=== PATIENT | male | born 1960 | race Caucasian/White ===

== ENCOUNTER 2018-02-25 07:20 | Emergency (ER) | payer OTHER ==
[2018-02-25 08:14] LABS: Absolute Lymphocytes (CBC) 1.3 K/uL (0.7-4.9); Absolute Monocytes 0.5 K/uL (0.1-1.3); Absolute Neutrophil 5.1 K/uL (1.8-8.0); Basophils % 0.8 % (0-1.3); Eosinophils % 2.5 % (0-4.4); Hematocrit 48.2 % (39.6-49.0); Lymphocytes % 17.7 % (15.3-44.8); MCH 31.1 pg (27.0-35.0); MCV 88.9 fL (80-100); MPV 10.6 fL (7.6-11.3); Monocytes % 7.2 % (3.3-12.3); RBC Red Blood Cell Count 5.42 M/uL (4.33-5.43)
[2018-02-25 08:31] LABS: ALT/SGPT 41 U/L (12-78); AST/SGOT 17 U/L (15-37); Albumin 3.7 g/dL (3.4-5.0); Alkaline Phosphatase 68 U/L (45-117); BUN Blood Urea Nitrogen 19 mg/dL (7-18); Bicarbonate 26 mmol/L (21-32); Bilirubin Direct 0.1 mg/dL (0-0.2); Bilirubin Total 0.6 mg/dL (0.2-1.0); Glucose Level 107 mg/dL (74-106); Magnesium 2.3 mg/dL (1.8-2.4); NT PRO-BNP 20 pg/mL (<125); Potassium 4.2 mmol/L (3.5-5.1); Protein, Total 6.9 g/dL (6.4-8.2); Sodium Level 137 mmol/L (136-145); Troponin (Emerg Dept Use Only) < 0.02 ng/mL (0.0-0.045)
--- NOTE | 2018-02-25 08:52 | RAD REPORT ---
EXAM DESCRIPTION: RAD - Chest Single View - 02/25/2018 8:13 am CLINICAL HISTORY: CHEST PAIN Chest pain. COMPARISON: CHEST PA AND LAT 2 VIEW dated 06/12/2014; CHEST PA AND LAT 2 VIEW dated 10/02/2013; CHEST S ASIA VIEW dated 04/25/2012; CHEST PA AND LAT 2 VIEW dated 09/03/2004 FINDINGS: Portable technique limits examination quality. The lungs are grossly clear. The heart is normal in size. No displaced fractures. IMPRESSION: No acute intrathoracic process suspected.
--- NOTE | 2018-02-25 09:50 | ER ---
Nurse's Notes [facility] Name: Dariel Duarte Age: 57 yrs Sex: Male : 1960 Arrival Date: 02/25/2018 Time: 07:23 Bed 16 Private MD: Fabián Fallon Diagnosis: Chest pain, unspecified Presentation: 02/25 07:30 Presenting complaint: Patient states: RIGHT SIDED CP RADIATING TO BACK. Transition of bp care: patient was not received from another setting of care. Onset of symptoms was February 20, 2018. Risk Assessment: Do you want to hurt yourself or someone else? Patient reports no desire to harm self or others. Initial Sepsis Screen: Does the patient meet any 2 criteria? No. Patient's initial sepsis screen is negative. Does the patient have a suspected source of infection? No. Patient's initial sepsis screen is negative. Care prior to arrival: None. 07:30 Method Of Arrival: Ambulatory bp 07:30 Acuity: FARZANA 3 bp Triage Assessment: 07:36 General: Appears in no apparent distress. comfortable, Behavior is calm, cooperative, bp appropriate for age. Pain: Complains of pain in anterior aspect of right upper chest Pain radiates to right subscapular area. Cardiovascular: Rhythm is sinus rhythm. Historical: - Allergies: 07:36 Codeine; bp - Home Meds: 07:36 aspirin 81 mg Oral TbEC 1 tab once daily [Active]; doxazosin 8 mg Oral tab 1 tab bp [Active]; escitalopram oxalate Oral [Active]; lisinopril-hydrochlorothiazide 20-12.5 mg Oral tab 1 tab once daily [Active]; Fish Oil Oral [Active]; Vitamin D3 2,000 unit Oral cap [Active]; Vitamin C Oral [Active]; - PMHx: 07:36 enlarged prostate; GERD; Hypertension; bp - Immunization history:: Adult Immunizations up to date. - Social history:: Smoking status: Patient/guardian denies using tobacco, the patient reports quitting approximately 8 years ago. - Ebola Screening: : Patient negative for fever greater than or equal to 101.5 degrees Fahrenheit, and additional compatible Ebola Virus Disease symptoms Patient denies exposure to infectious person Patient denies travel to an Ebola-affected area in the 21 days before illness onset No symptoms or risks identified at this time. Screenin:36 Abuse screen: Denies threats or abuse. Denies injuries from another. Nutritional bp screening: No deficits noted. Tuberculosis screening: No symptoms or risk factors identified. Fall Risk None identified. Assessment: 07:36 General: S/S FOR 5 DAYS. bp 07:36 Pain: Pain began 5 DAYS AGO. bp 08:58 Reassessment: ALL CURRENT ORDERS COMPLETED, RESULTS PENDING FOR DISPO. bp 09:58 Reassessment: PT D/C HOME AMBULATORY WITH FAMILY, DX WITH UNSPECIFIC CP. bp Vital Signs: 07:30 BP 127 / 84; Pulse 67; Resp 18; Temp 98; Pulse Ox 96% ; Weight 123.38 kg; Height 5 ft. bp 11 in. (180.34 cm); 08:58 BP 117 / 72; Pulse 72; Resp 14; Pulse Ox 95% ; bp 09:55 BP 126 / 92 RA; Pulse 60; Resp 16; Pulse Ox 96% ; bp 09:55 BP 132 / 89; Pulse 62 LA; bp 07:30 Body Mass Index 37.94 (123.38 kg, 180.34 cm) bp ED Course: 07:23 Patient arrived in ED. sb2 07:23 Fabián Fallon MD is Private Physician. sb2 07:26 Genaro Guzman NP is PHCP. pm1 07:26 Rosales Chaidez MD is Attending Physician. pm1 07:27 Fabián Wei, RN is Primary Nurse. bp 07:30 Arm band placed on right wrist. bp 07:33 Triage completed. bp 07:36 Patient has correct armband on for positive identification. Bed in low position. Call bp light in reach. Side rails up X2. Adult w/ patient. court recording monitor on. Pulse ox on. NIBP on. 07:36 Patient maintains SpO2 saturation greater than 95% on room air. bp 07:54 Inserted saline lock: 18 gauge in left hand, using aseptic technique. Blood collected. bp 08:11 X-ray completed. Portable x-ray completed in exam room. Patient tolerated procedure ag1 well. 08:11 XRAY Chest (1 view) In Process Unspecified. EDMS 08:13 EKG done, by restorative care technician. reviewed by Genaro Guzman NP. at1 09:50 Fabián Fallon MD is Referral Physician. pm1 09:56 No provider procedures requiring assistance completed. IV discontinued, intact, bp bleeding controlled, No redness/swelling at site. Pressure dressing applied. Administered Medications: No medications were administered Outcome: :50 Discharge ordered by MD. pm1 :57 Discharged to home ambulatory, with family. bp :57 Condition: stable :57 Discharge instructions given to patient, Instructed on discharge instructions, follow up and referral plans. Demonstrated understanding of instructions, follow-up care. 10:09 Patient left the ED. bp Signatures: Dispatcher [employer] EDMS Trudy Guido, power shear operator EKG Tat1 Macy Urbina ag1 Genaro Guzman, ELEVATED MOTORMAN ELEVATED MOTORMAN pm1 Fabián Wei, RN RN Marion Mike sb2
--- NOTE | 2018-02-25 09:50 | EDPHYS ---
Physician Documentation [facility] Name: Dariel Duarte Age: 57 yrs Sex: Male : 1960 Arrival Date: 02/25/2018 Time: 07:23 Bed 16 Private MD: Fabián Fallon ED Physician Rosales Chaidez HPI: 02/25 07:37 This 57 yrs old Male presents to ER via Ambulatory with complaints of Chest pm1 Pain. 07:37 The patient or guardian reports chest pain that is located primarily in the anterior pm1 chest wall, right. Onset: 4 day(s) ago. The pain radiates to right back. Associated signs and symptoms: Pertinent positives: diarrhea, Pertinent negatives: abdominal pain, cough, diaphoresis, dizziness, headache, nausea, palpitations, shortness of breath, vomiting. Duration: The patient or guardian reports a single episode. Modifying factors: The symptoms are alleviated by nothing. the symptoms are aggravated by nothing. Severity of pain: in the emergency department the pain is unchanged. The patient has been recently seen by a physician: the patient's primary care provider, with different complaint(s), the patient was seen for Rash, and apparently was diagnosed with folliculitis, was given a prescription for antibiotics, clindamycin. 07:37 1.5 pack per day smoker for 20 years. Quit 8 years ago. pm1 Historical: - Allergies: 07:36 Codeine; bp - Home Meds: 07:36 aspirin 81 mg Oral TbEC 1 tab once daily [Active]; doxazosin 8 mg Oral tab 1 tab bp [Active]; escitalopram oxalate Oral [Active]; lisinopril-hydrochlorothiazide 20-12.5 mg Oral tab 1 tab once daily [Active]; Fish Oil Oral [Active]; Vitamin D3 2,000 unit Oral cap [Active]; Vitamin C Oral [Active]; - PMHx: 07:36 enlarged prostate; GERD; Hypertension; bp - Immunization history:: Adult Immunizations up to date. - Social history:: Smoking status: Patient/guardian denies using tobacco, the patient reports quitting approximately 8 years ago. - Ebola Screening: : Patient negative for fever greater than or equal to 101.5 degrees Fahrenheit, and additional compatible Ebola Virus Disease symptoms Patient denies exposure to infectious person Patient denies travel to an Ebola-affected area in the 21 days before illness onset No symptoms or risks identified at this time. ROS: 07:37 Constitutional: Negative for fever, chills, and weight loss, Eyes: Negative for injury, pm1 pain, redness, and discharge, ENT: Negative for injury, pain, and discharge, Neck: Negative for injury, pain, and swelling, Respiratory: Negative for shortness of breath, cough, wheezing, and pleuritic chest pain. 07:37 Abdomen/GI: Negative for abdominal pain, nausea, vomiting, diarrhea, and constipation, Back: Negative for injury and pain, : Negative for injury, bleeding, discharge, and swelling, MS/Extremity: Negative for injury and deformity. 07:37 Neuro: Negative for headache, weakness, numbness, tingling, and seizure. 07:37 Cardiovascular: Positive for chest pain, Negative for edema, orthopnea, palpitations. 07:37 Skin: Positive for rash, of the scalp. Exam: 07:37 Constitutional: This is a well developed, well nourished patient who is awake, alert, pm1 and in no acute distress. Head/Face: Normocephalic, atraumatic. Eyes: Pupils equal round and reactive to light, extra-ocular motions intact. Lids and lashes normal. Conjunctiva and sclera are non-icteric and not injected. Cornea within normal limits. Periorbital areas with no swelling, redness, or edema. ENT: Nares patent. No nasal discharge, no septal abnormalities noted. Tympanic membranes are normal and external auditory canals are clear. Oropharynx with no redness, swelling, or masses, exudates, or evidence of obstruction, uvula midline. Mucous membranes moist. Neck: Trachea midline, no thyromegaly or masses palpated, and no cervical lymphadenopathy. Supple, full range of motion without nuchal rigidity, or vertebral point tenderness. No Meningismus. Chest/axilla: Normal chest wall appearance and motion. Nontender with no deformity. No lesions are appreciated. Cardiovascular: Regular rate and rhythm with a normal S1 and S2. No gallops, murmurs, or rubs. Normal PMI, no JVD. No pulse deficits. Respiratory: Lungs have equal breath sounds bilaterally, clear to auscultation and percussion. No rales, rhonchi or wheezes noted. No increased work of breathing, no retractions or nasal flaring. Abdomen/GI: Soft, non-tender, with normal bowel sounds. No distension or tympany. No guarding or rebound. No evidence of tenderness throughout. Back: No spinal tenderness. No costovertebral tenderness. Full range of motion. Skin: Warm, dry with normal turgor. Normal color with no rashes, no lesions, and no evidence of cellulitis. MS/ Extremity: Pulses equal, no cyanosis. Neurovascular intact. Full, normal range of motion. 07:37 Neuro: Orientation: is normal, Motor: is normal, moves all fours, Gait: is steady, at a normal pace, without difficulty. Vital Signs: 07:30 BP 127 / 84; Pulse 67; Resp 18; Temp 98; Pulse Ox 96% ; Weight 123.38 kg; Height 5 ft. bp 11 in. (180.34 cm); 08:58 BP 117 / 72; Pulse 72; Resp 14; Pulse Ox 95% ; bp 09:55 BP 126 / 92 RA; Pulse 60; Resp 16; Pulse Ox 96% ; bp 09:55 BP 132 / 89; Pulse 62 LA; bp 07:30 Body Mass Index 37.94 (123.38 kg, 180.34 cm) bp MDM: 07:26 Patient medically screened. pm1 09:45 ED course: Patient with constant atypical pain to the right side of chest for the past pm1 4 days. Negative troponin and ECG. LORRAINE score = 0. 09:49 Data reviewed: vital signs. Data interpreted: Pulse oximetry: on room air is 95 %. pm1 Interpretation: normal. Counseling: I had a detailed discussion with the patient and/or guardian regarding: the historical points, exam findings, and any diagnostic results supporting the discharge/admit diagnosis, lab results, radiology results, the need for outpatient follow up, to return to the emergency department if symptoms worsen or persist or if there are any questions or concerns that arise at home. 02/25 07:35 Order name: Basic Metabolic Panel; Complete Time: 08:31 pm1 02/25 07:35 Order name: CBC with Diff; Complete Time: 08:25 pm1 02/25 07:35 Order name: LFT's; Complete Time: 08:31 pm1 02/25 07:35 Order name: Magnesium; Complete Time: 08:31 pm1 02/25 07:35 Order name: NT PRO-BNP; Complete Time: 08:31 pm1 02/25 07:35 Order name: PT-INR; Complete Time: 08:22 pm1 02/25 07:35 Order name: Troponin (emerg Dept Use Only); Complete Time: 08:31 pm1 02/25 07:35 Order name: XRAY Chest (1 view); Complete Time: 08:55 pm1 02/25 07:35 Order name: EKG; Complete Time: 07:35 pm1 02/25 07:35 Order name: Cardiac monitoring; Complete Time: 07:44 pm1 02/25 07:35 Order name: EKG - Nurse/Tech; Complete Time: 07:54 pm1 02/25 07:35 Order name: IV Saline Lock; Complete Time: 07:54 pm1 02/25 07:35 Order name: Labs collected and sent; Complete Time: 07:54 pm1 02/25 07:35 Order name: O2 Per Protocol; Complete Time: 07:44 pm1 02/25 07:35 Order name: O2 Sat Monitoring; Complete Time: 07:44 pm1 Administered Medications: No medications were administered Disposition: 16:50 Co-signature as Attending Physician, Rosales Chaidez MD I agree with the assessment ma2 and plan of care. Disposition: 02/25/18 09:50 Discharged to Home. Impression: Chest pain, unspecified. - Condition is Stable. - Discharge Instructions: Nonspecific Chest Pain. - Medication Reconciliation Form, Thank You Letter, Work release form form. - Follow up: Emergency Department; When: As needed; Reason: Worsening of condition. Follow up: Fabián Fallon MD; When: 2 - 3 days; Reason: Recheck today's complaints, Continuance of care, Re-evaluation by your physician. - Problem is new. - Symptoms have improved. Signatures: Dispatcher [employer] EDMS Genaro Guzman NP CUSTOM FEED MILL OPERATOR pm1 Fabián Wei, MIKEY RN Rosales Davis MD MD ma2 Corrections: (The following items were deleted from the chart) 10:09 09:50 02/25/2018 09:50 Discharged to Home. Impression: Chest pain, unspecified. bp Condition is Stable. Forms are Medication Reconciliation Form, Thank You Letter, Antibiotic Education, Prescription Opioid Use. Follow up: Emergency Department; When: As needed; Reason: Worsening of condition. Follow up: Fabián Fallon; When: 2 - 3 days; Reason: Recheck today's complaints, Continuance of care, Re-evaluation by your physician. Problem is new. Symptoms have improved. pm1
[2018-02-25 10:20] VITALS: TEMP 98
[2018-02-25 10:22] VITALS: BP 132/89; O2SAT 96
--- NOTE | 2018-02-25 12:59 | EKG ---
Test Date: 2018-02-25 Test Time: 07:50:25 Detacher: JULISSA MEASUREMENT RESULTS: Intervals: Rate: 74 WV: 154 QRSD: 84 QT: 368 QTc: 408 [place]: P: 45 WV: 154 QRS: 65 T: 44 INTERPRETIVE STATEMENTS: Normal sinus rhythm Normal ECG Compared to ECG 05/31/2017 08:42:07 No significant changes Electronically Signed On 02-25-18 12:59:05 PERSONAL LINES ACCOUNT MANAGER by Chace Montoya
== END 2018-02-25 10:09 | disposition home or self-care (01) ==
LOC: ER 07:20
DX: R07.9 Chest pain, unspecified (principal); I10 Essential (primary) hypertension; K21.9 Gastro-esophageal reflux disease without esophagitis; N40.0 Benign prostatic hyperplasia without lower urinary tract symptoms; Z79.82 Long term (current) use of aspirin; Z79.899 Other long term (current) drug therapy; Z87.891 Personal history of nicotine dependence
CPT/HCPCS: 36415; 71045; 80048; 80076; 83735; 83880; 84484; 85025; 85610; 93005; 99285

== ENCOUNTER 2019-03-12 23:08 | Emergency (ER) | payer OTHER ==
[2019-03-12 23:40] LABS: Absolute Lymphocytes (CBC) 1.6 K/uL (0.7-4.9); Basophils % 0.9 % (0-1.3); Hematocrit 47.1 % (39.6-49.0); Lymphocytes % 22.6 % (15.3-44.8); MPV 10.1 fL (7.6-11.3); RBC Red Blood Cell Count 5.18 M/uL (4.33-5.43)
[2019-03-12] MEDS ORDERED: NA CHLORIDE 0.9% 1,000 ML ONE (23:41)
[2019-03-12 23:45] LABS: Protime INR 0.88
[2019-03-13 00:02] LABS: ALT/SGPT 40 U/L (12-78); AST/SGOT 15 U/L (15-37); Albumin 3.7 g/dL (3.4-5.0); Alkaline Phosphatase 65 U/L (45-117); BUN Blood Urea Nitrogen 14 mg/dL (7-18); Bicarbonate 29 mmol/L (21-32); Bilirubin Direct < 0.1 mg/dL (0-0.2); Bilirubin Total 0.4 mg/dL (0.2-1.0); Glucose Level 116 mg/dL (74-106); Magnesium 2.2 mg/dL (1.8-2.4); NT PRO-BNP 59 pg/mL (<125); Potassium 4.2 mmol/L (3.5-5.1); Protein, Total 6.5 g/dL (6.4-8.2); Sodium Level 141 mmol/L (136-145); Troponin (Emerg Dept Use Only) < 0.02 ng/mL (0.0-0.045)
[2019-03-13 00:42] LABS: Urine White Blood Cell Casts OK
[2019-03-13 00:43] LABS: Blood Morphology Comment NOT SEEN (NOT SEEN); Platelet Estimate ADEQ
--- NOTE | 2019-03-13 02:06 | EDPHYS ---
Physician Documentation [facility] Name: Dariel Duarte Age: 58 yrs Sex: Male : 1960 Arrival Date: 03/12/2019 Time: 23:10 Bed 19 Private MD: ED Physician Dany Coleman HPI: 03/12 23:40 This 58 yrs old Male presents to ER via Ambulatory with complaints of Chest snw Pain. 23:40 Onset: The symptoms/episode began/occurred suddenly, 3 week(s) ago, and became snw persistent. Associated signs and symptoms: Pertinent positives: nausea. The patient has not experienced similar symptoms in the past. It is unknown whether or not the patient has recently seen a physician, sees Dr. Fallon. Historical: - Allergies: 23:34 Codeine; wh - Home Meds: 23:34 aspirin 81 mg Oral TbEC 1 tab once daily [Active]; doxazosin 8 mg Oral tab 1 tab wh [Active]; Vitamin C Oral [Active]; escitalopram oxalate Oral [Active]; Fish Oil Oral [Active]; Omeprazole Oral [Active]; Lisinopril Oral [Active]; Vitamin D Oral [Active]; Potassium Chloride Oral [Active]; - PMHx: 23:34 enlarged prostate; GERD; Hypertension; wh - Immunization history:: Adult Immunizations not up to date. - Social history:: Smoking status: Patient/guardian denies using tobacco. - Ebola Screening: : Patient negative for fever greater than or equal to 101.5 degrees Fahrenheit, and additional compatible Ebola Virus Disease symptoms Patient denies exposure to infectious person. ROS: 23:39 Constitutional: Negative for fever, chills, and weight loss, Eyes: Negative for injury, snw pain, redness, and discharge, ENT: Negative for injury, pain, and discharge, Neck: Negative for injury, pain, and swelling. 23:39 Respiratory: Negative for shortness of breath, cough, wheezing, and pleuritic chest pain. 23:39 Back: Negative for injury and pain, : Negative for injury, bleeding, discharge, and swelling, MS/Extremity: Negative for injury and deformity, Skin: Negative for injury, rash, and discoloration, Neuro: Negative for headache, weakness, numbness, tingling, and seizure. 23:39 Cardiovascular: Positive for chest pain, with movement. 23:39 Abdomen/GI: Positive for nausea, mild, occasional. Exam: 23:38 Constitutional: This is a well developed, well nourished patient who is awake, alert, snw and in no acute distress. Head/Face: Normocephalic, atraumatic. Eyes: Pupils equal round and reactive to light, extra-ocular motions intact. Lids and lashes normal. Conjunctiva and sclera are non-icteric and not injected. Cornea within normal limits. Periorbital areas with no swelling, redness, or edema. ENT: Nares patent. No nasal discharge, no septal abnormalities noted. Tympanic membranes are normal and external auditory canals are clear. Oropharynx with no redness, swelling, or masses, exudates, or evidence of obstruction, uvula midline. Mucous membranes moist. Neck: Trachea midline, no thyromegaly or masses palpated, and no cervical lymphadenopathy. Supple, full range of motion without nuchal rigidity, or vertebral point tenderness. No Meningismus. Chest/axilla: Normal chest wall appearance and motion. Nontender with no deformity. No lesions are appreciated. Cardiovascular: Regular rate and rhythm with a normal S1 and S2. No gallops, murmurs, or rubs. Normal PMI, no JVD. No pulse deficits. Respiratory: Lungs have equal breath sounds bilaterally, clear to auscultation and percussion. No rales, rhonchi or wheezes noted. No increased work of breathing, no retractions or nasal flaring. 23:38 Back: No spinal tenderness. No costovertebral tenderness. Full range of motion. Skin: Warm, dry with normal turgor. Normal color with no rashes, no lesions, and no evidence of cellulitis. MS/ Extremity: Pulses equal, no cyanosis. Neurovascular intact. Full, normal range of motion. Neuro: Awake and alert, GCS 15, oriented to person, place, time, and situation. Cranial nerves II-XII grossly intact. Motor strength 5/5 in all extremities. Sensory grossly intact. Cerebellar exam normal. Normal gait. Psych: Awake, alert, with orientation to person, place and time. Behavior, mood, and affect are within normal limits. 23:38 Abdomen/GI: Inspection: abdomen appears normal, Bowel sounds: normal, Palpation: mild abdominal tenderness, in the epigastric area. Vital Signs: 23:26 BP 123 / 98; Pulse 71; Resp 18; Temp 97.8; Pulse Ox 98% ; Weight 124.74 kg; Height 5 wh ft. 11 in. (180.34 cm); 03/13 00:30 BP 120 / 106; Pulse 67; Resp 18; Pulse Ox 95% ; wh 01:52 BP 148 / 93; Pulse 73; Resp 18; Pulse Ox 95% on R/A; wh 03/12 23:26 Body Mass Index 38.35 (124.74 kg, 180.34 cm) MDM: 03/12 23:17 Patient medically screened. snw 03/13 00:51 ED course: to [facility]. snw 02:24 Data reviewed: vital signs, nurses notes. Data interpreted: Pulse oximetry: on room air snw is 95 %. Interpretation: normal. Counseling: I had a detailed discussion with the patient and/or guardian regarding: the historical points, exam findings, and any diagnostic results supporting the discharge/admit diagnosis, the presence of at least one elevated blood pressure reading (>120/80) during this emergency department visit, lab results, radiology results, the need for outpatient follow up, to return to the emergency department if symptoms worsen or persist or if there are any questions or concerns that arise at home. Response to treatment: the patient's symptoms have mildly improved after treatment. Special discussion: Based on the history and exam findings, there is no indication for further emergent testing or inpatient evaluation. I discussed with the patient/guardian the need to see the retirement sales consultant for further evaluation of the symptoms. I discussed with the patient/guardian the need to see the primary care provider for further evaluation of the symptoms. 03/12 23:23 Order name: Basic Metabolic Panel; Complete Time: 00:07 snw 03/12 23:23 Order name: CBC with Diff; Complete Time: 00:50 snw 03/12 23:23 Order name: LFT's; Complete Time: 00:07 snw 03/12 23:23 Order name: Magnesium; Complete Time: 00:07 snw 03/12 23:23 Order name: NT PRO-BNP; Complete Time: 00:07 snw 03/12 23:23 Order name: PT-INR; Complete Time: 23:51 snw 03/12 23:23 Order name: Troponin (emerg Dept Use Only); Complete Time: 00:07 snw 03/12 23:23 Order name: XRAY Chest (1 view) snw 03/12 23:23 Order name: EKG; Complete Time: 23:25 snw 03/12 23:23 Order name: Cardiac monitoring; Complete Time: 23:24 snw 03/12 23:23 Order name: CT Abd/Pelvis - PO and IV Contrast snw 03/13 00:50 Order name: CBC Smear Scan EDMS 03/12 23:23 Order name: EKG - Nurse/Tech; Complete Time: 23:25 snw 03/12 23:23 Order name: IV Saline Lock; Complete Time: 23:35 snw 03/12 23:23 Order name: Labs collected and sent; Complete Time: 23:35 snw 03/12 23:23 Order name: O2 Per Protocol; Complete Time: 23:24 snw 03/12 23:23 Order name: O2 Sat Monitoring; Complete Time: 23:24 snw Administered Medications: 03/12 23:44 Drug: NS 0.9% 1000 ml Route: IV; Rate: 125 ml/hr; Site: right antecubital; 03/13 02:35 Follow up: Response: No adverse reaction; IV Status: IV converted to saline lock 02:11 Drug: ProTONIX 40 mg Route: IVP; Site: right antecubital; 02:35 Follow up: Response: No adverse reaction Disposition: 10:22 Co-signature as Attending Physician, Dany Coleman MD I agree with the assessment and kdr plan of care. Disposition: 03/13/19 02:05 Discharged to Home. Impression: Chest pain, unspecified, Hepatomegaly, not elsewhere classified, Adrenal adenoma, unspecified. - Condition is Stable. - Discharge Instructions: Nonspecific Chest Pain, Food Choices for Gastroesophageal Reflux Disease, Adult, Hepatomegaly, Fat and Cholesterol Restricted Diet, [id number]. - Prescriptions for orphenadrine citrate 100 mg Oral Tablet Sustained Release - take 1 tablet by ORAL route 2 times per day As needed; 20 tablet. - Work release form, Medication Reconciliation Form, Thank You Letter, Antibiotic Education, Prescription Opioid Use form. - Follow up: Emergency Department; When: As needed; Reason: Worsening of condition. Follow up: Private Physician; When: 2 - 3 days; Reason: Recheck today's complaints, Continuance of care, Re-evaluation by your physician. Signatures: Dispatcher [employer] Dany Rojas MD MD kdr Therrien, Shelly, BANDAR PEREZP-Anny Goyal Jaymona lundberg Corrections: (The following items were deleted from the chart) 02:36 02:05 03/13/2019 02:05 Discharged to Home. Impression: Chest pain, unspecified; wh Hepatomegaly, not elsewhere classified; Adrenal adenoma, unspecified. Condition is Stable. Forms are Medication Reconciliation Form, Thank You Letter, Antibiotic Education, Prescription Opioid Use. Follow up: Emergency Department; When: As needed; Reason: Worsening of condition. Follow up: Private Physician; When: 2 - 3 days; Reason: Recheck today's complaints, Continuance of care, Re-evaluation by your physician. snw
--- NOTE | 2019-03-13 02:06 | ER ---
Nurse's Notes [facility] Name: Dariel Duarte Age: 58 yrs Sex: Male : 1960 Arrival Date: 03/12/2019 Time: 23:10 Bed 19 Private MD: Diagnosis: Chest pain, unspecified;Hepatomegaly, not elsewhere classified;Adrenal adenoma, unspecified Presentation: 03/12 23:24 Presenting complaint: Patient states: Epigastric pain that started 3 weeks ago wh exacerbated when he coughs and moves. Transition of care: patient was not received from another setting of care. Onset of symptoms was March 12, 2019. Risk Assessment: Do you want to hurt yourself or someone else? Patient reports no desire to harm self or others. Initial Sepsis Screen: Does the patient meet any 2 criteria? No. Patient's initial sepsis screen is negative. Does the patient have a suspected source of infection? No. Patient's initial sepsis screen is negative. Care prior to arrival: None. 23:24 Method Of Arrival: Ambulatory 23:24 Acuity: FARZANA 3 Historical: - Allergies: 23:34 Codeine; wh - Home Meds: 23:34 aspirin 81 mg Oral TbEC 1 tab once daily [Active]; doxazosin 8 mg Oral tab 1 tab wh [Active]; Vitamin C Oral [Active]; escitalopram oxalate Oral [Active]; Fish Oil Oral [Active]; Omeprazole Oral [Active]; Lisinopril Oral [Active]; Vitamin D Oral [Active]; Potassium Chloride Oral [Active]; - PMHx: 23:34 enlarged prostate; GERD; Hypertension; wh - Immunization history:: Adult Immunizations not up to date. - Social history:: Smoking status: Patient/guardian denies using tobacco. - Ebola Screening: : Patient negative for fever greater than or equal to 101.5 degrees Fahrenheit, and additional compatible Ebola Virus Disease symptoms Patient denies exposure to infectious person. Screenin:26 Abuse screen: Denies threats or abuse. Denies injuries from another. Nutritional screening: No deficits noted. Tuberculosis screening: No symptoms or risk factors identified. Fall Risk None identified. Assessment: 23:27 General: Appears in no apparent distress. Behavior is calm, cooperative, appropriate wh for age. Pain: Complains of pain in epigastric area Pain does not radiate. Pain currently is 8 out of 10 on a pain scale. Pain began 3 weeks ago Is intermittent. Neuro: Level of Consciousness is awake, alert, obeys commands, Oriented to person, place, time, situation, Appropriate for age. Cardiovascular: Heart tones S1 S2 Rhythm is regular. Respiratory: Airway is patent Respiratory effort is even, unlabored, Respiratory pattern is regular, symmetrical. GI: Abdomen is flat, non-distended. : No signs and/or symptoms were reported regarding the genitourinary system. EENT: No signs and/or symptoms were reported regarding the EENT system. Derm: Skin is intact, is healthy with good turgor, Skin is pink, warm \T\ dry. normal. Musculoskeletal: Circulation, motion, and sensation intact. 03/13 00:30 Reassessment: Patient appears in no apparent distress at this time. No changes from previously documented assessment. Patient and/or family updated on plan of care and expected duration. Pain level reassessed. Patient is alert, oriented x 3, equal unlabored respirations, skin warm/dry/pink. 01:51 Reassessment: Patient appears in no apparent distress at this time. No changes from previously documented assessment. Patient and/or family updated on plan of care and expected duration. Pain level reassessed. Patient is alert, oriented x 3, equal unlabored respirations, skin warm/dry/pink. 02:14 Reassessment: Provider at bedside explaining POC. Vital Signs: 03/12 23:26 BP 123 / 98; Pulse 71; Resp 18; Temp 97.8; Pulse Ox 98% ; Weight 124.74 kg; Height 5 ft. 11 in. (180.34 cm); 03/13 00:30 BP 120 / 106; Pulse 67; Resp 18; Pulse Ox 95% ; 01:52 BP 148 / 93; Pulse 73; Resp 18; Pulse Ox 95% on R/A; 03/12 23:26 Body Mass Index 38.35 (124.74 kg, 180.34 cm) ED Course: 03/12 23:10 Patient arrived in ED. ds1 23:12 Laquita Goyal is Primary Nurse. wh 23:16 Chandrika Bennett FNP-C is PHCP. snw 23:16 Dany Coleman MD is Attending Physician. snw 23:26 Triage completed. 23:29 Arm band placed on right wrist. 23:29 Patient has correct armband on for positive identification. Bed in low position. Call light in reach. Side rails up X 1. court recording monitor on. Pulse ox on. NIBP on. 23:29 Patient maintains SpO2 saturation greater than 95% on room air. 03/13 00:04 XRAY Chest (1 view) In Process Unspecified. EDMS 00:15 Inserted saline lock: 20 gauge in right antecubital area, using aseptic technique. Blood collected. 01:15 CT Abd/Pelvis - PO and IV Contrast In Process Unspecified. EDMS 02:34 No provider procedures requiring assistance completed. IV discontinued, intact, bleeding controlled, No redness/swelling at site. Administered Medications: 03/12 23:44 Drug: NS 0.9% 1000 ml Route: IV; Rate: 125 ml/hr; Site: right antecubital; 12 02:35 Follow up: Response: No adverse reaction; IV Status: IV converted to saline lock 02:11 Drug: ProTONIX 40 mg Route: IVP; Site: right antecubital; 02:35 Follow up: Response: No adverse reaction Outcome: 02:05 Discharge ordered by MD. snw 02:34 Discharged to home ambulatory, with family. 02:34 Condition: stable 02:34 Discharge instructions given to patient, family, Instructed on discharge instructions, follow up and referral plans. POC GERD and Non Specific Chest Pain Demonstrated understanding of instructions, follow-up care, medications, POC Prescriptions given X 1. 02:36 Patient left the ED. Signatures: Dispatcher [employer] EDRI Chandrika Bennett, EDUCATION AND TRAINING COORDINATOR-C EDUCATION AND TRAINING COORDINATOR-Maria Eugenia Stanton dsLaquita Davis
[2019-03-13] MEDS ORDERED: PANTOPRAZOLE 40 MG INJ ONE (02:09)
[2019-03-13 02:46] VITALS: TEMP 97.8
[2019-03-13 02:47] VITALS: O2SAT 95
[2019-03-13 02:48] VITALS: BP 148/93
--- NOTE | 2019-03-13 08:29 | RAD REPORT ---
EXAM DESCRIPTION: RAD - Chest Single View - 03/12/2019 11:58 pm CLINICAL HISTORY: Chest pain COMPARISON: February 2018 TECHNIQUE: AP portable chest image was obtained 2350 hours . FINDINGS: No focal lung parenchymal process. Interstitial pattern and heart size match the compariso n. Heart and vasculature are normal. No measurable pleural effusion and no pneumothorax. No acute bon y abnormality seen. No acute aortic findings suspected. IMPRESSION: No acute cardiopulmonary process.
--- NOTE | 2019-03-13 10:05 | EKG ---
Test Date: 2019-03-12 Test Time: 23:16:26 Manager Simulation: SHANIA MEASUREMENT RESULTS: Intervals: Rate: 72 [place]: 148 QRSD: 84 QT: 402 QTc: 440 [place]: P: 69 [place]: 148 QRS: 76 T: 43 INTERPRETIVE STATEMENTS: Normal sinus rhythm Normal ECG Compared to ECG 02/25/2018 07:50:25 No significant changes Electronically Signed On 03-13-19 10:03:32 [employer] by Chace Montoya
--- NOTE | 2019-03-14 11:39 | RAD REPORT ---
EXAM DESCRIPTION: CT - Abdomen Pelvis W Contrast - 03/13/2019 2:38 am CLINICAL HISTORY: 58-year-old male with abdominal pain, epigastric pain that started three weeks ago and is exacerbated when he coughs TECHNIQUE: Axial CT imaging of the abdomen and pelvis was performed following the administration of intravenous contrast.. Sagittal and coronal reconstructed images were then performed. The CT stud y is performed according to ALARA (as low as reasonably achievable) or ALARA/IMAGE GENTLY, with autom atic adjustment of mA and/or kV according to patient size. Performed on: 03/13/2019 at 1:04 AM. COMPARISON: Prior CT abdomen and pelvis performed on 05/31/2017. The report from this prior study was not available for review FINDINGS: Lung bases: The lung bases are clear. There is minimal bibasilar atelectasis and/or fibros is. There is prominent subpleural fat in the dependent lungs. Liver: The liver is enlarged and measures 21 cm in craniocaudal dimension. There is a stable small cy st in the posterior right hepatic lobe measuring approximately 3.0 x 1.8 cm in cross-sectional diamet er and there are a couple of additional subcentimeter right hepatic lobe cysts. There appears to be a n area of focal fatty sparing in the lateral segment of the left hepatic lobe. There is decreased att enuation of the liver commonly due to fatty infiltration. Spleen: The spleen is normal is size, configuration and attenuation. Gallbladder and bile duct: The gallbladder is well distended and unremarkable. There is no biliary ductal dilatation. Pancreas: The pancreas is grossly normal in size and configuration. Adrenal Glands: There is a stable low density mass lesion arising from the left adrenal gland measuri ng approximately 1.7 x 1.3 cm in cross-sectional diameter. This likely represents an adrenal adenoma. The right adrenal gland is normal in size and configuration. Kidneys: The kidneys are normal in size and configuration. There is no evidence of hydronephrosis. Th ere is no evidence of nephrolithiasis. No definite solid or cystic renal mass lesions are identified. There is a circumaortic left renal vein. Stomach: The stomach is grossly normal. There is no definite hiatal hernia. Bowel: The bowel gas pattern is non specific and non obstructive. Appendix: The appendix is normal. Free air: There is no evidence of free air. Free fluid: There is no evidence of free fluid. Vasculature: The aorta is normal in caliber and contour. The inferior vena cava is grossly unremarkab le. Lymphadenopathy: No pathologic lymphadenopathy is identified. Bladder: The bladder is well distended and smooth in contour. Reproductive: The prostate gland is grossly within normal limits. Bones: No acute osseous abnormalities are identified. Soft tissues: There is a small fat-containing left inguinal hernia. IMPRESSION: 1. No evidence of acute intra-abdominal or intrapelvic pathology. 2. Hepatomegaly. There are a few small hepatic cysts which are grossly stable. 3. Suspect focal fatty sparing within the lateral segment of the left hepatic lobe. 4. Stable small low density left adrenal mass lesion most consistent with an adrenal adenoma. 5. Small fat-containing left inguinal hernia. Electronically signed by: Negar Perez DO 03/13/2019 1:40 AM [facility] Due to temporary technical issues with the PACS/Fluency reporting system, reports are being signed by the in house radiologist as a courtesy to ensure prompt reporting. The interpreting radiologist is f ully responsible for the content of the report.
== END 2019-03-13 02:36 | disposition home or self-care (01) ==
LOC: ER 23:08
DX: R16.0 Hepatomegaly, not elsewhere classified (principal); D35.00 Benign neoplasm of unspecified adrenal gland; I10 Essential (primary) hypertension; K21.9 Gastro-esophageal reflux disease without esophagitis; N40.0 Benign prostatic hyperplasia without lower urinary tract symptoms; Z79.82 Long term (current) use of aspirin; Z88.5 Allergy status to narcotic agent
CPT/HCPCS: 96361; 93005; 85025; 80048; 36415; 83735; 85610; 80076; 84484; 83880; 74177; 71045; 96374; 99285; Q9967; C9113; J7030

== ENCOUNTER 2019-08-08 05:33 | Emergency (ER) | payer BC, OTHER ==
--- OUTSIDE RECORDS SUMMARY | 2019-08-08 05:35 | XMS REPORT ---
:1960 Author Organization [facility] t Address [address] [place] [address] [address] [place] [address] Care Team Providers Name Role Phone Unavailable Unavailable Unavailable Problems This patient has no known problems. Allergies, Adverse Reactions, Alerts This patient has no known allergies or adverse reactions. Medications This patient has no known medications.
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
[2019-08-08 06:23] LABS: Absolute Lymphocytes (CBC) 1.1 K/uL (0.7-4.9); Basophils % 0.6 % (0-1.3); Hematocrit 47.5 % (39.6-49.0); Lymphocytes % 16.6 % (15.3-44.8); MPV 10.3 fL (7.6-11.3); RBC Red Blood Cell Count 5.23 M/uL (4.33-5.43)
[2019-08-08 06:39] LABS: Albumin 3.7 g/dL (3.4-5.0); Bilirubin Direct 0.1 mg/dL (0-0.2); Bilirubin Total 0.4 mg/dL (0.2-1.0); Potassium 4.3 mmol/L (3.5-5.1); Protein, Total 6.9 g/dL (6.4-8.2)
--- NOTE | 2019-08-08 08:12 | RAD REPORT ---
EXAM DESCRIPTION: CT - Abdomen Pelvis W Contrast - 08/08/2019 7:09 am CLINICAL HISTORY: ABD PAIN, left lower quadrant pain COMPARISON: Abdomen Pelvis W Contrast dated 03/13/2019; Abdomen Pelvis W Contrast dated 01/13/2016 TECHNIQUE: Biphasic, helical CT imaging of the abdomen and pelvis was performed following 100 ml non -ionic IV contrast. No oral contrast administered. All CT scans are performed using dose optimization technique as appropriate and may include automated exposure control or mA/KV adjustment according to patient size. FINDINGS: No suspicious findings in the lung bases. Normal size liver shows a fatty infiltration pattern. Increased attenuation in the posterior margin o f the left lobe cine area of spared parenchyma. This matches prior imaging. Approximately 3 centimete r cyst posterior right lobe shows no change in characteristics. Spleen and pancreas show no suspiciou s findings. Gallbladder and biliary tree are also without suspicious finding. Symmetric renal function is seen with no hydronephrosis or suspicious renal mass. No pyelonephritis o r acute parenchymal process. Contracted urinary bladder shows no suspicious finding. No prostate or s eminal vesicle acute finding. No adrenal abnormalities. No stomach or small bowel acute finding seen. The appendix is normal. Mild to moderate stool volume i n a normal size colon. Sigmoid is redundant. There is little or no diverticulosis. No active colon pr ocess. No free air, free fluid or inflammatory stranding. No mass or bulky lymphadenopathy. Patient does fernando ve a small fat only left inguinal hernia. No congestion or edema of the herniated fat. The hernia is unchanged the 2016 study. No acute bony findings. Patient has significant degenerative disc disease at L2-3 with disc bulge and endplate spurring. Foraminal encroachment is present but not critical. Slight wedging of the T11 bod y is noted. The disc and bone findings match the 2019 study. No suspicious vascular finding. No abdom inal wall hematoma or mass. No suspicious soft tissue finding. IMPRESSION: As detailed above, CT abdomen and pelvis imaging shows no acute process. Above detailed findings are stable from the March 2019 study.
--- NOTE | 2019-08-08 08:24 | EDPHYS ---
Physician Documentation [facility] Name: Dariel Duarte Age: 59 yrs Sex: Male : 1960 Arrival Date: 08/08/2019 Time: 05:35 Bed 8 Private MD: Chris Hunt HPI: 08/07 06:05 This 59 yrs old Male presents to ER via Ambulatory with complaints of Side jr8 Pain-L. 06:05 The patient presents with abdominal pain in the left lower quadrant. Onset: The jr8 symptoms/episode began/occurred gradually, 2 month(s) ago. The symptoms do not radiate. Associated signs and symptoms: none. The symptoms are described as dull. Modifying factors: The symptoms are alleviated by nothing, the symptoms are aggravated by nothing. Severity of pain: At its worst the pain was mild in the emergency department the pain is unchanged. The patient has not experienced similar symptoms in the past. The patient has been recently seen by a physician:. Patient stated that he has had pain to lateral left abdomen for about 2 months. Stated that it has been unrelieved since then. Went to [facility] and had urinalysis completed. Stated that it was normal. Historical: - Allergies: 06:01 Codeine; jd3 - Home Meds: 06:01 escitalopram oxalate 10 mg oral tab [Active]; aspirin 81 mg Oral TbEC 1 tab once daily jd3 [Active]; doxazosin 8 mg Oral tab 1 tab [Active]; Fish Oil Oral [Active]; lisinopril Oral [Active]; omeprazole 40 mg oral cpDR [Active]; Potassium Chloride Oral [Active]; Vitamin D Oral [Active]; dexmethylphenidate 30 mg oral BP50 [Active]; doxazosin 8 mg oral tab [Active]; rosuvastatin 5 mg oral tab [Active]; clonidine HCl 0.1 mg Oral tab 1 tab once daily [Active]; divalproex 250 mg oral Tb24 [Active]; doxycycline hyclate 100 mg Oral cap [Active]; Vitamin B-6 Oral [Active]; - PMHx: 06:01 enlarged prostate; GERD; Hypertension; jd3 - PSHx: 06:01 prostate; right elbow; jd3 - Immunization history:: Adult Immunizations up to date. - Social history:: Smoking status: Patient/guardian denies using tobacco, but has a distant history of tobacco abuse. ROS: 06:05 Eyes: Negative for injury, pain, redness, and discharge, ENT: Negative for injury, jr8 pain, and discharge, Neck: Negative for injury, pain, and swelling, Cardiovascular: Negative for chest pain, palpitations, and edema, Respiratory: Negative for shortness of breath, cough, wheezing, and pleuritic chest pain, Back: Negative for injury and pain, MS/Extremity: Negative for injury and deformity, Skin: Negative for injury, rash, and discoloration, Neuro: Negative for headache, weakness, numbness, tingling, and seizure. 06:05 Abdomen/GI: Positive for abdominal pain, diarrhea, Negative for nausea and vomiting, abdominal cramps, abdominal distension, anorexia, dysphagia, hematemesis, black/tarry stool, rectal pain, rectal bleeding, bowel incontinence, flatulence. Exam: 06:05 Eyes: Pupils equal round and reactive to light, extra-ocular motions intact. Lids and jr8 lashes normal. Conjunctiva and sclera are non-icteric and not injected. Cornea within normal limits. Periorbital areas with no swelling, redness, or edema. ENT: Nares patent. No nasal discharge, no septal abnormalities noted. Tympanic membranes are normal and external auditory canals are clear. Oropharynx with no redness, swelling, or masses, exudates, or evidence of obstruction, uvula midline. Mucous membranes moist. Neck: Trachea midline, no thyromegaly or masses palpated, and no cervical lymphadenopathy. Supple, full range of motion without nuchal rigidity, or vertebral point tenderness. No Meningismus. Cardiovascular: Regular rate and rhythm with a normal S1 and S2. No gallops, murmurs, or rubs. Normal PMI, no JVD. No pulse deficits. Respiratory: Lungs have equal breath sounds bilaterally, clear to auscultation and percussion. No rales, rhonchi or wheezes noted. No increased work of breathing, no retractions or nasal flaring. Back: No spinal tenderness. No costovertebral tenderness. Full range of motion. Skin: Warm, dry with normal turgor. Normal color with no rashes, no lesions, and no evidence of cellulitis. MS/ Extremity: Pulses equal, no cyanosis. Neurovascular intact. Full, normal range of motion. Neuro: Awake and alert, GCS 15, oriented to person, place, time, and situation. Cranial nerves II-XII grossly intact. Motor strength 5/5 in all extremities. Sensory grossly intact. Cerebellar exam normal. Normal gait. 06:05 Abdomen/GI: Inspection: obese Bowel sounds: active, all quadrants, Palpation: soft, in all quadrants, mild abdominal tenderness, in the anterior aspect of left lateral abdomen and left lower quadrant, mass, is not appreciated, rebound tenderness, is not appreciated, voluntary guarding, is not appreciated, involuntary guarding, is not appreciated, no appreciated organomegaly, Indicators: McBurney's point is not tender, Lange's sign is negative, Rovsing's sign is negative, Liver: tenderness, is not appreciated. Vital Signs: 06:01 BP 131 / 90; Pulse 81; Resp 17 S; Temp 97.6(TE); Pulse Ox 95% on R/A; Weight 125.19 kg jd3 (R); Height 5 ft. 11 in. (180.34 cm) (R); Pain 5/10; 07:39 BP 127 / 84; Pulse 77; Resp 16; Pulse Ox 99% ; sv 08:29 BP 122 / 82; Pulse 78; Resp 16; Pulse Ox 99% ; sv 06:01 Body Mass Index 38.49 (125.19 kg, 180.34 cm) jd3 MDM: 05:47 Patient medically screened. campbell 06:08 Differential diagnosis: bowel obstruction, non-specific abd pain, Pyelonephritis, jr8 Ureterolithiasis, urinary tract infection, colitis, diverticulitis, intraabdominal mass, musculoskeletal, hernia. 08:12 Data reviewed: vital signs, nurses notes, lab test result(s), radiologic studies, CT jr8 scan. Data interpreted: Pulse oximetry: on room air is 99 %. Interpretation: normal. Counseling: I had a detailed discussion with the patient and/or guardian regarding: the historical points, exam findings, and any diagnostic results supporting the discharge/admit diagnosis, lab results, radiology results, the need for outpatient follow up, a family practitioner, to return to the emergency department if symptoms worsen or persist or if there are any questions or concerns that arise at home. 08/07 05:54 Order name: Basic Metabolic Panel; Complete Time: 06:41 jr8 08/07 05:54 Order name: CBC with Diff; Complete Time: 06:33 8 08/07 05:54 Order name: Creatinine for Radiology; Complete Time: 06:39 08/07 05:54 Order name: Hepatic Function; Complete Time: 06:41 08/07 05:54 Order name: Lipase; Complete Time: 06:41 08/07 06:39 Order name: CT Abd/Pelvis - IV Contrast Only; Complete Time: 08:18 08/07 05:54 Order name: IV Saline Lock; Complete Time: 06:04 08/07 05:54 Order name: Labs collected and sent; Complete Time: 06:19 Administered Medications: No medications were administered Disposition: 11:05 Co-signature as Attending Physician, Chris Phipps MD I agree with the assessment and campbell plan of care. Disposition: 08/08/19 08:23 Discharged to Home. Impression: Generalized abdominal pain. - Condition is Stable. - Discharge Instructions: Abdominal Pain, Adult. - Work release form, Medication Reconciliation Form, Thank You Letter, Antibiotic Education, Prescription Opioid Use form. - Follow up: Private Physician; When: 5 - 6 days; Reason: Recheck today's complaints, Continuance of care, Re-evaluation by your physician. - Problem is new. - Symptoms have improved. Signatures: Dispatcher [employer] Kristel Rivera RN RN sv Anderson, Corey, MD MD cha Roszak, Josh, PA PA jr8 Kosta Cruz RN RN jd3 Corrections: (The following items were deleted from the chart) 08:30 08:23 08/08/2019 08:23 Discharged to Home. Impression: Generalized abdominal pain. sv Condition is Stable. Forms are Medication Reconciliation Form, Thank You Letter, Antibiotic Education, Prescription Opioid Use. Follow up: Private Physician; When: 5 - 6 days; Reason: Recheck today's complaints, Continuance of care, Re-evaluation by your physician. Problem is new. Symptoms have improved. jr8
--- NOTE | 2019-08-08 08:24 | ER ---
Nurse's Notes [facility] Name: Dariel Duarte Age: 59 yrs Sex: Male : 1960 Arrival Date: 08/08/2019 Time: 05:35 Bed 8 Private MD: Diagnosis: Generalized abdominal pain Presentation: 08/07 05:54 Chief complaint: Patient states: "I have been having this stomach pain on my lower left jd3 side for about 2 months now. I went to [facility] and was told it was muscle strain, but they didn't do any test on me. it mainly hurts worse when eating too much or when I have a bowel movement.". Coronavirus screen: Proceed with normal triage. Ebola Screen: Patient negative for fever greater than or equal to 101.5 degrees Fahrenheit, and additional compatible Ebola Virus Disease symptoms. Initial Sepsis Screen: Does the patient meet any 2 criteria? No. Patient's initial sepsis screen is negative. Does the patient have a suspected source of infection? No. Patient's initial sepsis screen is negative. Risk Assessment: Do you want to hurt yourself or someone else? Patient reports no desire to harm self or others. Onset of symptoms was June 06, 2019. 05:54 Method Of Arrival: Ambulatory jd3 05:54 Acuity: FARZANA 3 jd3 Historical: - Allergies: 06:01 Codeine; jd3 - Home Meds: 06:01 escitalopram oxalate 10 mg oral tab [Active]; aspirin 81 mg Oral TbEC 1 tab once daily jd3 [Active]; doxazosin 8 mg Oral tab 1 tab [Active]; Fish Oil Oral [Active]; lisinopril Oral [Active]; omeprazole 40 mg oral cpDR [Active]; Potassium Chloride Oral [Active]; Vitamin D Oral [Active]; dexmethylphenidate 30 mg oral BP50 [Active]; doxazosin 8 mg oral tab [Active]; rosuvastatin 5 mg oral tab [Active]; clonidine HCl 0.1 mg Oral tab 1 tab once daily [Active]; divalproex 250 mg oral Tb24 [Active]; doxycycline hyclate 100 mg Oral cap [Active]; Vitamin B-6 Oral [Active]; - PMHx: 06:01 enlarged prostate; GERD; Hypertension; jd3 - PSHx: 06:01 prostate; right elbow; jd3 - Immunization history:: Adult Immunizations up to date. - Social history:: Smoking status: Patient/guardian denies using tobacco, but has a distant history of tobacco abuse. Screenin:03 Abuse screen: Denies threats or abuse. Nutritional screening: No deficits noted. jd3 Tuberculosis screening: No symptoms or risk factors identified. Fall Risk Ambulatory Aid- None/Bed Rest/Nurse Assist (0 pts). Gait- Normal/Bed Rest/Wheelchair (0 pts) Mental Status- Oriented to own ability (0 pts). Total Hurley Fall Scale indicates No Risk (0-24 pts). Assessment: 06:02 General: Appears uncomfortable, Behavior is calm, cooperative, appropriate for age. jd3 Pain: Complains of pain in left lower quadrant Quality of pain is described as dull. Neuro: Level of Consciousness is awake, alert, obeys commands, Oriented to person, place, time, situation. Cardiovascular: Denies chest pain, Capillary refill < 3 seconds Patient's skin is warm and dry. Respiratory: Airway is patent Respiratory effort is even, unlabored, Respiratory pattern is regular, symmetrical, Denies cough, shortness of breath. GI: Abdomen is round non-distended, Bowel sounds present X 4 quads. Abd is soft and non tender X 4 quads. Reports lower abdominal pain, diarrhea, Patient currently denies constipation, nausea, vomiting. : No signs and/or symptoms were reported regarding the genitourinary system. EENT: No signs and/or symptoms were reported regarding the EENT system. Derm: Skin is intact, Skin is dry, Skin is normal, Skin temperature is warm. Musculoskeletal: Circulation, motion, and sensation intact. Range of motion: intact in all extremities. 06:46 Reassessment: No changes from previously documented assessment. Patient and/or family jd3 updated on plan of care and expected duration. Pain level reassessed. Patient is alert, oriented x 3, equal unlabored respirations, skin warm/dry/pink. awaiting CT scan. 07:38 Reassessment: Patient appears in no apparent distress at this time. Patient and/or sv family updated on plan of care and expected duration. Pain level reassessed. Patient is alert, oriented x 3, equal unlabored respirations, skin warm/dry/pink. 08:29 Reassessment: Patient appears in no apparent distress at this time. No changes from sv previously documented assessment. Patient and/or family updated on plan of care and expected duration. Pain level reassessed. Patient is alert, oriented x 3, equal unlabored respirations, skin warm/dry/pink. Vital Signs: 06:01 BP 131 / 90; Pulse 81; Resp 17 S; Temp 97.6(TE); Pulse Ox 95% on R/A; Weight 125.19 kg jd3 (R); Height 5 ft. 11 in. (180.34 cm) (R); Pain 5/10; 07:39 BP 127 / 84; Pulse 77; Resp 16; Pulse Ox 99% ; sv 08:29 BP 122 / 82; Pulse 78; Resp 16; Pulse Ox 99% ; sv 06:01 Body Mass Index 38.49 (125.19 kg, 180.34 cm) j ED Course: 05:35 Patient arrived in ED. ds1 05:47 Chris Phipps MD is Attending Physician. campbell 05:53 Kosta Cruz, RN is Primary Nurse. jd3 05:54 Ganesh Mendosa PA is PHCP. jr8 05:56 Triage completed. jd3 06:02 Arm band placed on. jd3 06:03 Patient has correct armband on for positive identification. Bed in low position. Call j light in reach. Side rails up X 1. Pulse ox on. NIBP on. 06:20 Initial lab(s) drawn, by ky, sent to lab. Inserted saline lock: 20 gauge in left jd3 antecubital area, using aseptic technique. Blood collected. 07:09 CT Abd/Pelvis - IV Contrast Only In Process Unspecified. EDMS 07:18 Awaiting radiology results. sv 07:18 Primary Nurse role handed off by Kosta Cruz, RN sv 07:18 Kristel Franco, MIKEY is Primary Nurse. sv 08:29 No provider procedures requiring assistance completed. IV discontinued, intact, sv bleeding controlled, No redness/swelling at site. Pressure dressing applied. Administered Medications: No medications were administered Outcome: 08:23 Discharge ordered by . jr8 08:30 Discharged to home ambulatory. sv 08:30 Condition: stable 08:30 Discharge instructions given to patient, Instructed on discharge instructions, follow up and referral plans. Demonstrated understanding of instructions, follow-up care. 08:30 Patient left the ED. sv Signatures: Dispatcher [employer] Kristel Rivera RN RN sv Chris Phipps MD MD cha Sanford, Demi ds1 Ganesh Mendosa PA PA jr8 Kosta Cruz RN RN jd3 Corrections: (The following items were deleted from the chart) 07:42 07:39 Resp 16bpm; Pulse Ox 99%; sv sv
[2019-08-08 08:38] VITALS: TEMP 97.6
[2019-08-08 08:40] VITALS: O2SAT 99
[2019-08-08 08:41] VITALS: BP 122/82
== END 2019-08-08 08:30 | disposition home or self-care (01) ==
LOC: ER 05:33
DX: R10.84 Generalized abdominal pain (principal); I10 Essential (primary) hypertension; K21.9 Gastro-esophageal reflux disease without esophagitis; Z79.82 Long term (current) use of aspirin; Z88.5 Allergy status to narcotic agent
CPT/HCPCS: 85025; 80048; 36415; 80076; 83690; 74177; 99284; Q9967

== ENCOUNTER 2020-07-03 09:11 | Emergency (ER) | payer BC ==
--- OUTSIDE RECORDS SUMMARY | 2020-07-03 09:14 | XMS REPORT | Continuity of Care Document ---
:1960 Author Organization [facility] t Address [address] [place] [address] [address] [place] [address] Care Team Providers Name Role Phone Yumiko Varghese DO Attending Clinician Problems This patient has no known problems. Allergies, Adverse Reactions, Alerts This patient has no known allergies or adverse reactions. Medications This patient has no known medications. Procedures This patient has no known procedures. Encounters Start End Encounter Admission Attending Care Care Encounter Source Date/Time Date/Time Type Type Clinicians Facility Department ID 2019-08-02 2019-08-02 Emergency BELLE Varghese [id number] 12:12:50 13:32:00 Kathy Zapien [id number] [place] [id number] [place] [id number] Results This patient has no known results.
[2020-07-03] MEDS ORDERED: KETOROLAC 30 MG/ML INJ ONE (10:12)
[2020-07-03] MEDS ORDERED: CYCLOBENZAPRINE 10 MG TAB ONE (10:12)
--- NOTE | 2020-07-03 11:13 | EDPHYS ---
Physician Documentation [facility] Name: Dariel Duarte Age: 60 yrs Sex: Male : 1960 Arrival Date: 07/03/2020 Time: 09:13 Bed 23 Private MD: ED Physician Dany Coleman HPI: 07/03 10:52 This 60 yrs old Male presents to ER via Ambulatory with complaints of Back kb Pain. 10:52 The patient presents with pain that is acute, and tenderness. The symptoms are located kb in the left mid back. Onset: The symptoms/episode began/occurred 6 week(s) ago. The pain does not radiate. Associated signs and symptoms: The patient has no apparent associated signs or symptoms. The problem was sustained during a fall, while walking. Modifying factors: The patient symptoms are alleviated by nothing, the patient symptoms are aggravated by movement. Severity of symptoms: At their worst the symptoms were moderate, in the emergency department the symptoms are unchanged. The patient has not experienced similar symptoms in the past. The patient has not recently seen a physician. Pt reports pain to left mid back that started after a fall 6 weeks ago. Reports pain is worse with movement, stretching. Area is tender to palpation. . Historical: - Allergies: 09:21 Codeine; ss - PMHx: 09:21 enlarged prostate; GERD; Hypertension; ss - PSHx: 09:21 prostate; right elbow; ss - Immunization history:: Adult Immunizations unknown. - Social history:: Smoking status: Patient denies any tobacco usage or history of. ROS: 10:51 Constitutional: Negative for fever, chills, and weight loss, Cardiovascular: Negative kb for chest pain, palpitations, and edema, Respiratory: Negative for shortness of breath, cough, wheezing, and pleuritic chest pain, Abdomen/GI: Negative for abdominal pain, nausea, vomiting, diarrhea, and constipation, MS/Extremity: Negative for injury and deformity, Skin: Negative for injury, rash, and discoloration, Neuro: Negative for headache, weakness, numbness, tingling, and seizure. 10:51 Back: Positive for pain at rest, pain with movement. Exam: 10:50 Constitutional: This is a well developed, well nourished patient who is awake, alert, kb and in no acute distress. Head/Face: Normocephalic, atraumatic. Cardiovascular: Regular rate and rhythm with a normal S1 and S2. No gallops, murmurs, or rubs. No pulse deficits. Skin: Warm, dry with normal turgor. Normal color. MS/ Extremity: Pulses equal, no cyanosis. Neurovascular intact. Full, normal range of motion. Neuro: Awake and alert, GCS 15, oriented to person, place, time, and situation. Moves all extremities. Normal gait. 10:50 Respiratory: the patient does not display signs of respiratory distress, Respirations: normal, Breath sounds: are clear throughout. 10:50 Back: pain, that is moderate, of the left mid back, ROM is normal, normal spinal alignment noted, CVA tenderness, is absent, vertebral tenderness, is not appreciated. Vital Signs: 09:19 Pulse 77; Resp 16; Temp 98.4(TE); Pulse Ox 98% on R/A; Weight 127.91 kg; Height 5 ft. ss 11 in. (180.34 cm); Pain 7/10; 09:22 BP 130 / 85; ss 09:19 Body Mass Index 39.33 (127.91 kg, 180.34 cm) ss MDM: 09:37 Patient medically screened. kb 10:45 Data reviewed: vital signs, nurses notes. Data interpreted: Pulse oximetry: on room air kb is 98 %. Interpretation: normal. Counseling: I had a detailed discussion with the patient and/or guardian regarding: the historical points, exam findings, and any diagnostic results supporting the discharge/admit diagnosis, radiology results, the need for outpatient follow up, a family practitioner, to return to the emergency department if symptoms worsen or persist or if there are any questions or concerns that arise at home. 07/03 09:44 Order name: Chest Single View XRAY kb 07/03 10:51 Order name: Urine Dipstick-Ancillary (obtain specimen); Complete Time: 11:19 kb Administered Medications: 10:00 Drug: TORadol 60 mg Route: IM; Site: right gluteus; ca1 11:23 Follow up: Response: No adverse reaction ss 10:01 Drug: Flexeril (cyclobenzaprine) 10 mg Route: PO; ca1 11:23 Follow up: Response: No adverse reaction; Marked relief of symptoms ss Disposition: 14:10 Co-signature as Attending Physician, Dany Coleman MD I agree with the assessment and kdr plan of care. Disposition: 07/03/20 11:12 Discharged to Home. Impression: Muscle spasm of back. - Condition is Stable. - Discharge Instructions: Back Pain, Adult, [id number], Muscle Cramps and Spasms, [id number]. - Prescriptions for Cyclobenzaprine 10 mg Oral Tablet - take 1 tablet by ORAL route every 8 hours As needed; 21 tablet. Diclofenac Sodium 75 mg Oral Tablet, Delayed Release (E.C.) - take 1 tablet by ORAL route 2 times per day As needed; 30 tablet. - Medication Reconciliation Form, Thank You Letter, Antibiotic Education, Prescription Opioid Use, Work release form form. - Follow up: Emergency Department; When: As needed; Reason: Worsening of condition. Follow up: Private Physician; When: 2 - 3 days; Reason: Recheck today's complaints, Continuance of care, Re-evaluation by your physician. Signatures: Dispatcher [employer] EDMS Palmira Downs, VP ANCILLARY-C VP ANCILLARY-Dany Esquivel MD MD [facility] Leandra Taylor RN RN ss Cindy Gil RN RN ca1 Corrections: (The following items were deleted from the chart) 11: 11:12 07/03/2020 11:12 Discharged to Home. Impression: Muscle spasm of back. Condition ss is Stable. Discharge Instructions: Back Pain, Adult, Fsso-ez-Yezs, Muscle Cramps and Spasms, Dhwj-cw-Pale. Prescriptions for Cyclobenzaprine 10 mg Oral Tablet - take 1 tablet by ORAL route every 8 hours As needed; 21 tablet, Diclofenac Sodium 75 mg Oral Tablet, Delayed Release (E.C.) - take 1 tablet by ORAL route 2 times per day As needed; 30 tablet. and Forms are Medication Reconciliation Form, Thank You Letter, Antibiotic Education, Prescription Opioid Use. Follow up: Emergency Department; When: As needed; Reason: Worsening of condition. Follow up: Private Physician; When: 2 - 3 days; Reason: Recheck today's complaints, Continuance of care, Re-evaluation by your physician. kb
--- NOTE | 2020-07-03 11:13 | ER ---
Nurse's Notes [facility] Name: Dariel Duarte Age: 60 yrs Sex: Male : 1960 Arrival Date: 07/03/2020 Time: 09:13 Bed 23 Private MD: Diagnosis: Muscle spasm of back Presentation: 07/03 09:19 Chief complaint: Patient states: L mid back pain, "feels like a Leonard Horse" x 6 ss weeks. Has gotten worse. Pt reports he fell about 6 weeks ago onto his L shoulder. Coronavirus screen: Client denies travel out of the [place] in the last 14 days. Ebola Screen: Patient denies exposure to infectious person. Patient denies travel to an Ebola-affected area in the 21 days before illness onset. Initial Sepsis Screen: Does the patient meet any 2 criteria? No. Patient's initial sepsis screen is negative. Does the patient have a suspected source of infection? No. Patient's initial sepsis screen is negative. Risk Assessment: Do you want to hurt yourself or someone else? Patient reports no desire to harm self or others. Onset of symptoms was May 2020. 09:19 Method Of Arrival: Ambulatory ss 09:19 Acuity: FARZANA 4 ss Historical: - Allergies: 09:21 Codeine; ss - PMHx: 09:21 enlarged prostate; GERD; Hypertension; ss - PSHx: 09:21 prostate; right elbow; ss - Immunization history:: Adult Immunizations unknown. - Social history:: Smoking status: Patient denies any tobacco usage or history of. Screenin:30 Abuse screen: Denies threats or abuse. Denies injuries from another. Nutritional ss screening: No deficits noted. Tuberculosis screening: Never had TB. Fall Risk None identified. Assessment: 09:19 General: Appears in no apparent distress. comfortable, Behavior is calm, cooperative, ss Denies fever, feeling ill, fatigue, chills. Pain: Complains of pain in left subscapular area and left mid back Pain currently is 7 out of 10 on a pain scale. Quality of pain is described as "Feels like a Leonard horse" Pain began 6 weeks ago Is intermittent. Neuro: Level of Consciousness is awake, alert, obeys commands, Oriented to person, place, time, situation, Reacher are equal bilaterally. Cardiovascular: Capillary refill < 3 seconds is brisk in bilateral fingers Patient's skin is warm and dry. Respiratory: Airway is patent Trachea midline Respiratory effort is even, unlabored, Respiratory pattern is regular, symmetrical, Breath sounds are clear bilaterally. Denies cough, shortness of breath pain with respiration, pain with cough, pain with movement. EENT: Oral mucosa is moist. Derm: Skin is pink, warm \\T\\ dry. normal. Vital Signs: 09:19 Pulse 77; Resp 16; Temp 98.4(TE); Pulse Ox 98% on R/A; Weight 127.91 kg; Height 5 ft. ss 11 in. (180.34 cm); Pain 7/10; 09:22 BP 130 / 85; ss 09:19 Body Mass Index 39.33 (127.91 kg, 180.34 cm) ss ED Course: 09:13 Patient arrived in ED. as 09:21 Triage completed. ss 09:21 Arm band placed on right wrist. ss 09:30 Patient has correct armband on for positive identification. Bed in low position. Call ss light in reach. 09:36 Palmira Downs FNP-C is [facility]. kb 09:36 Dany Coleman MD is Attending Physician. kb 10:03 Chest Single View XRAY In Process Unspecified. EDMS 10:22 Leandra Taylor RN is Primary Nurse. ss 11:22 No provider procedures requiring assistance completed. Patient did not have IV access ss during this emergency room visit. Administered Medications: 10:00 Drug: TORadol 60 mg Route: IM; Site: right gluteus; ca1 11:23 Follow up: Response: No adverse reaction ss 10:01 Drug: Flexeril (cyclobenzaprine) 10 mg Route: PO; ca1 11:23 Follow up: Response: No adverse reaction; Marked relief of symptoms ss Outcome: 11:12 Discharge ordered by . kb 11:22 Discharged to home ambulatory. ss 11:22 Condition: improved 11:22 Discharge instructions given to patient, Instructed on discharge instructions, follow up and referral plans. medication usage, Demonstrated understanding of instructions, follow-up care, medications, Prescriptions given X 2. 11:24 Patient left the ED. ss Signatures: Dispatcher [employer] EDMS Palmira Downs FNP-C FNP-Delmi Mojica as Leandra Taylor, RN RN ss AcCindy garay, RN RN ca1
[2020-07-03 11:28] VITALS: TEMP 98.4; O2SAT 98
[2020-07-03 11:29] VITALS: BP 130/85
--- NOTE | 2020-07-08 13:52 | RAD REPORT ---
EXAM DESCRIPTION: RAD Chest Single View 07/03/2020 10:03 am CLINICAL HISTORY: Rib pain COMPARISON: 2019 FINDINGS: The lungs appear clear of acute infiltrate. The heart is normal size. No gross rib fracture seen IMPRESSION: No acute abnormalities displayed
== END 2020-07-03 11:24 | disposition home or self-care (01) ==
LOC: ER 09:11
DX: M62.830 Muscle spasm of back (principal); K21.9 Gastro-esophageal reflux disease without esophagitis; I10 Essential (primary) hypertension
CPT/HCPCS: 71045; 96372; 99283

== ENCOUNTER 2020-07-21 01:52 | Emergency (ER) | payer BC ==
--- OUTSIDE RECORDS SUMMARY | 2020-07-21 01:55 | XMS REPORT | Continuity of Care Document ---
:[address] [facility] t Address [address] [place] [address] Dr. A[address]. [address] [place] [address] Care Team Providers Name Role Phone Yumiko [...] 2019-08-02 2019-08-02 Emergency BELLE Varghese [id number] 12:12:50 13:32:00 Kathy Zapien [id number] [place] [id number] [place] [phone] Results This patient has no known results.
[2020-07-21] MEDS ORDERED: FLUORESCEIN SODIUM 1 MG/WRAP ONE (02:56)
[2020-07-21] MEDS ORDERED: TETRACAINE HCL 0.5% 4ML OPTH ONE (02:56)
--- NOTE | 2020-07-21 03:12 | ER ---
Nurse's Notes [facility] Name: Dariel Duarte Age: 60 yrs Sex: Male : 1960 Arrival Date: 07/21/2020 Time: 01:56 Bed 5 Private MD: Diagnosis: Corneal Abrasion, Right Presentation: 07/21 02:11 Chief complaint: Patient states: he woke up at approx 0100 and vision in his right eye bb is blurry he states that it has happened before but usually clears up by now. Coronavirus screen: At this time, the client does not indicate any symptoms associated with coronavirus-19. Ebola Screen: No symptoms or risks identified at this time. Initial Sepsis Screen: Does the patient meet any 2 criteria? No. Patient's initial sepsis screen is negative. Does the patient have a suspected source of infection? No. Patient's initial sepsis screen is negative. Risk Assessment: Do you want to hurt yourself or someone else? Patient reports no desire to harm self or others. Onset of symptoms was July 21, 2020. 02:11 Method Of Arrival: Ambulatory bb 02:11 Acuity: FARZANA 4 bb Historical: - Allergies: 02:20 Codeine; bb - Home Meds: 02:20 escitalopram oxalate 10 mg Oral tab [Active]; omeprazole 40 mg Oral cpDR [Active]; bb lisinopril 20 mg oral tab 1 tab [Active]; doxazosin 8 mg Oral tab 1 tab [Active]; rosuvastatin 5 mg Oral tab [Active]; Fish Oil 1200 mg Oral [Active]; aspirin 81 mg Oral TbEC 1 tab once daily [Active]; Vitamin D Oral [Active]; Potassium Chloride 275 mg Oral [Active]; Vitamin C Oral [Active]; Xiidra [Active]; - PMHx: 02:20 enlarged prostate; GERD; Hypertension; High Cholesterol; Dry Eye; bb - PSHx: 02:20 prostate; right elbow; bb - Immunization history:: Adult Immunizations up to date. - Social history:: Smoking status: unknown. Screenin:51 Abuse screen: Denies threats or abuse. Denies injuries from another. Nutritional lp1 screening: No deficits noted. Tuberculosis screening: No symptoms or risk factors identified. Fall Risk None identified. Assessment: 03:04 General: Appears in no apparent distress. Behavior is calm, cooperative. Pain: lp1 Complains of pain in right eye. Neuro: Level of Consciousness is awake, alert, obeys commands, Oriented to person, place, time, situation, Gait is steady, Reports blurred vision in right eye. Cardiovascular: Patient's skin is warm and dry. Respiratory: Reports. GI: No signs and/or symptoms were reported involving the gastrointestinal system. : No signs and/or symptoms were reported regarding the genitourinary system. EENT: No signs and/or symptoms were reported regarding the EENT system. Derm: Skin is pink, warm \T\ dry. Musculoskeletal: No deficits noted. Vital Signs: 02:11 BP 139 / 99; Pulse 65; Resp 18 S; Temp 97.4(TE); Pulse Ox 95% on R/A; Weight 131.54 kg bb (R); Height 5 ft. 11 in. (180.34 cm) (R); Pain 0/10; 02:11 Body Mass Index 40.45 (131.54 kg, 180.34 cm) bb Visual Acuity: 02:20 Left Eye Visual acuity 20/15, Pupil size 4 mm, ; Right Eye Visual acuity 20/30, Pupil bb size 4 mm, ; Both Eyes Visual acuity 20/15; Without Lenses; ED Course: 01:56 Patient arrived in ED. bp1 02:12 Lazaro Covarrubias MD is Attending Physician. 7 02:13 Ngoc Waters, MIKEY is Primary Nurse. lp1 02:13 Triage completed. bb 02:20 Arm band placed on Patient placed in an exam room, on a stretcher, on pulse oximetry. bb Family accompanied patient. 02:50 Assist provider with eye exam of right eye. using fluorescein stain, Performed by lp1 Lazaro Covarrubias MD Patient tolerated well. 02:51 Patient has correct armband on for positive identification. lp1 03:10 Carlee Dunn MD is Referral Physician. 7 03:21 Patient did not have IV access during this emergency room visit. Administered Medications: 02:49 Drug: Tetracaine Drops 0.5 % 1 drops Route: Ophthalmic; Site: right eye; lp1 Outcome: 03:11 Discharge ordered by . 7 03:21 Discharged to home ambulatory, with family. 03:21 Condition: stable 03:21 Discharge instructions given to patient, family, Instructed on discharge instructions, follow up and referral plans. medication usage, POC Demonstrated understanding of instructions, follow-up care, medications, POC Prescriptions given X 1. 03:21 Patient left the ED. Signatures: Kamini Frazier RN RN Ngoc Waters RN RN lp1 Laquita Goyal RN RN Key Spencer Maurice, MD MD mh7
--- NOTE | 2020-07-21 03:12 | EDPHYS ---
Physician Documentation [facility] Name: Dariel Duarte Age: 60 yrs Sex: Male : 1960 Arrival Date: 07/21/2020 Time: 01:56 Bed 5 Private MD: ED Physician Lazaro Covarrubias HPI: 07/21 02:57 This 60 yrs old Male presents to ER via Ambulatory with complaints of Vision mh7 Problem, Blurred Vision, Right Eye. 02:57 The patient is experiencing blurred vision, The patient sustained Unknown. to the right mh7 eye, caused by an unknown mechanism. Onset: The symptoms/episode began/occurred today. Duration: the symptoms are continuous. Aggravated by rubbing, Alleviated by nothing. Associated signs and symptoms: Pertinent negatives: chills, dizziness, ear ache, fever, headache, runny nose. Patient wears glasses. Severity of symptoms: At their worst the symptoms were mild this morning, in the emergency department the symptoms have improved moderately. The patient has experienced similar episodes in the past, multiple times. 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 Last worked 2 days ago. States he woke up with blurry vision of right eye which has happened regularly in the past. He has been rubbing right eye. Denies pain, nausea, vomiting, or other complaints.. Historical: - Allergies: 02:20 Codeine; bb - Home Meds: 02:20 escitalopram oxalate 10 mg Oral tab [Active]; omeprazole 40 mg Oral cpDR [Active]; bb lisinopril 20 mg oral tab 1 tab [Active]; doxazosin 8 mg Oral tab 1 tab [Active]; rosuvastatin 5 mg Oral tab [Active]; Fish Oil 1200 mg Oral [Active]; aspirin 81 mg Oral TbEC 1 tab once daily [Active]; Vitamin D Oral [Active]; Potassium Chloride 275 mg Oral [Active]; Vitamin C Oral [Active]; Xiidra [Active]; - PMHx: 02:20 enlarged prostate; GERD; Hypertension; High Cholesterol; Dry Eye; bb - PSHx: 02:20 prostate; right elbow; bb - Immunization history:: Adult Immunizations up to date. - Social history:: Smoking status: unknown. ROS: 03:06 Constitutional: Negative for fever, chills, and weight loss, ENT: Negative for injury, mh7 pain, and discharge, Neck: Negative for injury, pain, and swelling, Cardiovascular: Negative for chest pain, palpitations, and edema, Respiratory: Negative for shortness of breath, cough, wheezing, and pleuritic chest pain, Abdomen/GI: Negative for abdominal pain, nausea, vomiting, diarrhea, and constipation, Back: Negative for injury and pain, : Negative for injury, bleeding, discharge, and swelling, MS/Extremity: Negative for injury and deformity, Skin: Negative for injury, rash, and discoloration, Neuro: Negative for headache, weakness, numbness, tingling, and seizure, Psych: Negative for depression, anxiety, suicide ideation, homicidal ideation, and hallucinations, Allergy/Immunology: Negative for hives, rash, and allergies, Endocrine: Negative for neck swelling, polydipsia, polyuria, polyphagia, and marked weight changes, Hematologic/Lymphatic: Negative for swollen nodes, abnormal bleeding, and unusual bruising. Exam: 03:06 Visual Acuity: I have reviewed the nursing documentation. [facility] 03:06 Constitutional: This is a well developed, well nourished patient who is awake, alert, and in no acute distress. Head/Face: Normocephalic, atraumatic. 03:06 Neck: Trachea midline, no thyromegaly or masses palpated, and no cervical lymphadenopathy. Supple, full range of motion without nuchal rigidity, or vertebral point tenderness. No Meningismus. Chest/axilla: Normal chest wall appearance and motion. Nontender with no deformity. No lesions are appreciated. Cardiovascular: Regular rate and rhythm with a normal S1 and S2. No gallops, murmurs, or rubs. Normal PMI, no JVD. No pulse deficits. Respiratory: Lungs have equal breath sounds bilaterally, clear to auscultation and percussion. No rales, rhonchi or wheezes noted. No increased work of breathing, no retractions or nasal flaring. Abdomen/GI: Soft, non-tender, with normal bowel sounds. No distension or tympany. No guarding or rebound. No evidence of tenderness throughout. Back: No spinal tenderness. No costovertebral tenderness. Full range of motion. Skin: Warm, dry with normal turgor. Normal color with no rashes, no lesions, and no evidence of cellulitis. MS/ Extremity: Pulses equal, no cyanosis. Neurovascular intact. Full, normal range of motion. Neuro: Awake and alert, GCS 15, oriented to person, place, time, and situation. Cranial nerves II-XII grossly intact. Motor strength 5/5 in all extremities. Sensory grossly intact. Cerebellar exam normal. Normal gait. Psych: Awake, alert, with orientation to person, place and time. Behavior, mood, and affect are within normal limits. 03:06 Eyes: Periorbital structures: appear normal, Pupils: equal, round, and reactive to light and accomodation, Extraocular movements: intact throughout, Conjunctiva: normal, Corneas: abrasion, that is moderate sized, on the right, at 6 o'clock, 9 O'clock, foreign body, is not appreciated, a fluorescein strip employed to appreciate the findings, Sclera: no appreciated abnormality, Lids and lashes: appear normal, bilaterally, funduscopic exam reveals no obvious abnormalities, Visual rothman: are intact, Nystagmus: is not appreciated, Examination of the other eye reveals no obvious gross abnormality, Intraocular pressure: right eye = 18mmHg, left eye = 18mmHg. Vital Signs: 02:11 BP 139 / 99; Pulse 65; Resp 18 S; Temp 97.4(TE); Pulse Ox 95% on R/A; Weight 131.54 kg bb (R); Height 5 ft. 11 in. (180.34 cm) (R); Pain 0/10; 02:11 Body Mass Index 40.45 (131.54 kg, 180.34 cm) bb Visual Acuity: 02:20 Left Eye Visual acuity 20/15, Pupil size 4 mm, ; Right Eye Visual acuity 20/30, Pupil bb size 4 mm, ; Both Eyes Visual acuity 20/15; Without Lenses; MDM: 03:06 Differential diagnosis: Corneal abrasion of right eye. Corneal ulcer of right eye. mh7 Foreign body in right eye. Acute iritis of right eye. Acute glaucoma in right eye. Ultraviolet keratitis in right eye. Data reviewed: vital signs, nurses notes. Data interpreted: Pulse oximetry: on room air is 95 %. Interpretation: normal. Counseling: I had a detailed discussion with the patient and/or guardian regarding: the historical points, exam findings, and any diagnostic results supporting the discharge/admit diagnosis, the presence of at least one elevated blood pressure reading (>120/80) during this emergency department visit, the need for outpatient follow up, an opthalmologist, to return to the emergency department if symptoms worsen or persist or if there are any questions or concerns that arise at home. Response to treatment: the patient's symptoms have markedly improved after treatment. 03:11 Patient medically screened. 7 07/21 02:37 Order name: Fluoresene Opth strip; Complete Time: 02:49 7 07/21 02:49 Order name: Eye Tray; Complete Time: 02:49 lp1 Administered Medications: 02:49 Drug: Tetracaine Drops 0.5 % 1 drops Route: Ophthalmic; Site: right eye; lp1 Disposition: 07/21/20 03:11 Discharged to Home. Impression: Corneal Abrasion, Right. - Condition is Stable. - Discharge Instructions: Corneal Abrasion, [id number]. - Prescriptions for Ciloxan 0.3 % Ophthalmic Drops - instill 2 drop by OPHTHALMIC route every 6 hours for 7 days; 5 milliliter. - Medication Reconciliation Form, Thank You Letter, Antibiotic Education, Prescription Opioid Use form. - Follow up: Private Physician; When: 1 - 2 days; Reason: Worsening of condition, Recheck today's complaints, Continuance of care, Re-evaluation by your physician. Follow up: Carlee Dunn MD; When: 1 - 2 days; Reason: Worsening of condition, Recheck today's complaints. - Problem is an acute exacerbation. - Symptoms have improved. Signatures: Kamini Frazier RN RN Ngoc Waters RN RN [facility] Laquita Goyal RN RN Lazaro Covarrubias MD MD 7 Corrections: (The following items were deleted from the chart) 03:21 03:11 07/21/2020 03:11 Discharged to Home. Impression: Corneal Abrasion, Right. wh Condition is Stable. Forms are Medication Reconciliation Form, Thank You Letter, Antibiotic Education, Prescription Opioid Use. Follow up: Private Physician; When: 1 - 2 days; Reason: Worsening of condition, Recheck today's complaints, Continuance of care, Re-evaluation by your physician. Follow up: Carlee Dunn; When: 1 - 2 days; Reason: Worsening of condition, Recheck today's complaints. Problem is an acute exacerbation. Symptoms have improved. mh7
== END 2020-07-21 03:21 | disposition home or self-care (01) ==
LOC: ER 01:52
DX: S05.01XA Injury of conjunctiva and corneal abrasion without foreign body, right eye, initial encounter (principal); I10 Essential (primary) hypertension; E78.00 Pure hypercholesterolemia, unspecified; Z79.82 Long term (current) use of aspirin; Z88.5 Allergy status to narcotic agent
CPT/HCPCS: 99284

== ENCOUNTER 2020-12-17 05:33 | Observation (INO) | payer BC ==
--- OUTSIDE RECORDS SUMMARY | 2020-12-17 05:35 | XMS REPORT | Continuity of Care Document ---
:1960 Author Organization [facility] t Address [address] [place] [address] Dr. Abreu. [address] [place] [address] Care Team Providers Name Role Phone Yumiko [...] 2019-08-02 2019-08-02 Emergency BELLE Varghese [id number] 12:12:50 13:32:00 Kathy Zapien [id number] [place] [id number] [place] [phone] Results This patient has no known results.
[2020-12-17 06:40] LABS: Basophils % 0.6 % (0-1.3); Hematocrit 45.2 % (39.6-49.0); Lymphocytes % 14.5 % (15.3-44.8); MPV 9.7 fL (7.6-11.3); RBC Red Blood Cell Count 5.02 M/uL (4.33-5.43)
[2020-12-17 06:49] LABS: ALT/SGPT 34 U/L (12-78); AST/SGOT 13 U/L (15-37); Albumin 3.7 g/dL (3.4-5.0); Alkaline Phosphatase 71 U/L (45-117); BUN Blood Urea Nitrogen 25 mg/dL (7-18); Bicarbonate 28 mmol/L (21-32); Bilirubin Direct < 0.1 mg/dL (0-0.2); Bilirubin Total 0.4 mg/dL (0.2-1.0); Glucose Level 133 mg/dL (74-106); Magnesium 2.1 mg/dL (1.8-2.4); NT PRO-BNP 100 pg/mL (<125); Potassium 4.7 mmol/L (3.5-5.1); Sodium Level 139 mmol/L (136-145); Troponin (Emerg Dept Use Only) < 0.02 ng/mL (0.0-0.045)
[2020-12-17 06:50] LABS: Protime INR 0.91
[2020-12-17] MEDS ORDERED: ASPIRIN 81 MG CHEWABLE TABLET ONE ×2 (07:19→07:21)
--- NOTE | 2020-12-17 07:19 | RAD REPORT ---
EXAM DESCRIPTION: RAD - Chest Single View - 12/17/2020 6:09 am CLINICAL HISTORY: CHEST PAIN COMPARISON: Chest Single View dated 07/03/2020; Chest Single View dated 03/12/2019; Chest Single View dated 02/25/2018; CHEST PA AND LAT 2 VIEW dated 06/12/2014 FINDINGS: Lines: None. Lungs: Diffuse increased prominence of the pulmonary interstitium. Pleural: No significant pleural effusions or pneumothorax. Cardiac: The heart size is within normal limits. Bones: No acute fractures. Other: IMPRESSION: Increased prominence of the pulmonary interstitium likely reflects pulmonary vascular co ngestion versus mild edema. Pneumonia less likely.
--- NOTE | 2020-12-17 08:17 | ER ---
Nurse's Notes [facility] Name: Dariel Duarte Age: 60 yrs Sex: Male : 1960 Arrival Date: 12/17/2020 Time: 05:37 Bed 7 Private MD: Diagnosis: Chest pain, unspecified Presentation: 12/17 05:55 Chief complaint: Patient states: Pt reports he started having chest pain at 4 AM that ea radiates to right arm. Pt states pain is 7/10. Coronavirus screen: At this time, the client does not indicate any symptoms associated with coronavirus-19. Ebola Screen: No symptoms or risks identified at this time. Initial Sepsis Screen: Does the patient meet any 2 criteria? No. Patient's initial sepsis screen is negative. Does the patient have a suspected source of infection? No. Patient's initial sepsis screen is negative. Risk Assessment: Do you want to hurt yourself or someone else? Patient reports no desire to harm self or others. Onset of symptoms was December 17, 2020. 05:55 Acuity: FARZANA 3 ea 05:55 Method Of Arrival: Ambulatory ea Triage Assessment: 05:59 General: Appears in no apparent distress. Behavior is cooperative. Pain: Complains of ea pain in chest and right arm. Neuro: Level of Consciousness is awake, alert, obeys commands, Oriented to person, place, time. Cardiovascular: Patient's skin is warm and dry. Respiratory: Airway is patent Respiratory effort is even, unlabored, Respiratory pattern is regular, symmetrical. Derm: Skin is pink, warm \\T\\ dry. Historical: - Allergies: 07:09 Codeine; sv - Home Meds: 05:53 aspirin 81 mg Oral TbEC 1 tab once daily [Active]; ea 08:45 escitalopram oxalate 10 mg Oral tab once daily [Active]; omeprazole 40 mg Oral cpDR sv once daily [Active]; lisinopril 20 mg Oral tab 1 tab once daily [Active]; doxazosin 8 mg Oral tab 1 tab once daily [Active]; rosuvastatin 5 mg Oral tab once daily [Active]; Fish Oil 1200 MG Oral 2 tab daily [Active]; Vitamin D3 2800 units daily oral [Active]; Potassium Chloride 275 mg Oral once daily [Active]; Vitamin C Oral daily [Active]; - PMHx: 05:53 Hypertension; High Cholesterol; GERD; enlarged prostate; Dry Eye; ea - Immunization history:: Adult Immunizations up to date. - Social history:: Smoking status: Patient denies any tobacco usage or history of. Screenin:54 Abuse screen: Denies threats or abuse. Nutritional screening: No deficits noted. ea Tuberculosis screening: No symptoms or risk factors identified. Fall Risk None identified. Assessment: 07:00 General: Appears in no apparent distress. comfortable, obese, well groomed, well sv developed, Behavior is calm, cooperative, appropriate for age. Pain: Complains of pain in chest Pain does not radiate. Pain currently is 7 out of 10 on a pain scale. Quality of pain is described as sharp, Pain began 2-3 days ago. Is intermittent. Neuro: Level of Consciousness is awake, alert, obeys commands, Oriented to person, place, time, situation, Gait is steady. Cardiovascular: Patient's skin is warm and dry. Rhythm is sinus rhythm. Respiratory: Airway is patent Respiratory effort is even, unlabored, Respiratory pattern is regular, symmetrical. Derm: Skin is pink, warm \\T\\ dry. Musculoskeletal: Range of motion: intact in all extremities. 08:00 Reassessment: Patient appears in no apparent distress at this time. Patient and/or sv family updated on plan of care and expected duration. Pain level reassessed. Patient is alert, oriented x 3, equal unlabored respirations, skin warm/dry/pink. 09:00 Reassessment: Patient appears in no apparent distress at this time. Patient and/or sv family updated on plan of care and expected duration. Pain level reassessed. Patient is alert, oriented x 3, equal unlabored respirations, skin warm/dry/pink. 10:30 Reassessment: Patient appears in no apparent distress at this time. Patient and/or sv family updated on plan of care and expected duration. Pain level reassessed. Patient is alert, oriented x 3, equal unlabored respirations, skin warm/dry/pink. 10:44 Reassessment: Dr Sandra at the bedside. sv Vital Signs: 05:55 BP 128 / 88; Pulse 73; Resp 20; Temp 98.6; Pulse Ox 94% on R/A; Weight 128.82 kg; ea Height 5 ft. 11 in. (180.34 cm); Pain 7/10; 07:00 BP 128 / 79 LA Sitting (auto/lg); Pulse 71; sv 07:02 BP 128 / 76 RA Sitting (auto/lg); Pulse 73; sv 07:54 BP 115 / 95; Pulse 78; Resp 20; Pulse Ox 91% ; sv 08:45 BP 119 / 63; Pulse 75; Resp 20; Pulse Ox 93% ; sv 09:30 BP 113 / 74; Pulse 69; Resp 18; Pulse Ox 92% ; sv 10:15 BP 111 / 73; Pulse 72; Resp 19; Pulse Ox 92% ; sv 05:55 Body Mass Index 39.61 (128.82 kg, 180.34 cm) ea ED Course: 05:37 Patient arrived in ED. wm 05:55 Patient has correct armband on for positive identification. 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 Pulse ea ox on. NIBP on. 05:58 Triage completed. ea 05:58 Arm band placed on right wrist. Patient placed in an exam room, on a stretcher, on ea pulse oximetry. 05:58 No provider procedures requiring assistance completed. Patient maintains SpO2 ea saturation greater than 95% on room air. 06:02 EKG done, by ED staff, reviewed by David Pacheco MD. tt3 06:09 XRAY Chest (1 view) In Process Unspecified. EDMS 06:12 Inserted saline lock: 20 gauge in right wrist, using aseptic technique. Blood collected.ds4 06:14 Palmira Downs FNP-C is PHCP. kb 06:14 David Pacheco MD is Attending Physician. kb 06:46 Morris Bauer, RN is Primary Nurse. jb4 08:16 Rosales Lundy MD is Hospitalizing Provider. kb 08:19 Primary Nurse role handed off by Morris Bauer, RN sv 08:19 Kristel Franco, MIKEY is Primary Nurse. sv 09:01 COVID-19 : Document "Date of Symptom Onset" if Symptomatic. Sent. ss 10:30 Patient admitted, IV remains in place. intact. sv Administered Medications: 06:59 Drug: Aspirin Chewable Tablet 243 mg Route: PO; jb4 07:09 Follow up: Response: No adverse reaction sv Outcome: 08:16 Decision to Hospitalize by Provider. kb 10:30 Admitted to ER Hold. Please see [facility] for further documentation. sv 10:30 Condition: stable 10:30 Instructed on the need for admit. 15:13 Patient left the ED. sv Signatures: Dispatcher [employer] EDMS Palmira Downs, RADHA-Jj JUMPBASTING LINING BASTER-Kristel Wood RN RN sv Smirch, Shelby, RN RN ss Swanson, Donovan ds4 Morris Bauer RN RN jb4 Fabby Moore RN RN ea Trim, Tyler tt3 Maru Pandey Corrections: (The following items were deleted from the chart) 08:47 08:45 Home Meds: Vitamin D Oral; 2000 IU; [facility] 08:47 08:45 Home Meds: Xiidra; sv sv
--- NOTE | 2020-12-17 08:17 | EDPHYS ---
Physician Documentation [facility] Name: Dariel Duarte Age: 60 yrs Sex: Male : 1960 Arrival Date: 12/17/2020 Time: 05:37 Bed 7 Private MD: ED Physician David Pacheco HPI: 12/17 06:24 This 60 yrs old Male presents to ER via Ambulatory with complaints of Chest kb Pain > 30 y/o. 06:24 The patient or guardian reports chest pain that is located primarily in the substernal kb area. Onset: this morning, at 04:00. The pain radiates to back. Associated signs and symptoms: Pertinent positives: shortness of breath. The chest pain is described as aching. Duration: The patient or guardian reports a single episode, that is still ongoing. Modifying factors: The symptoms are alleviated by nothing. the symptoms are aggravated by nothing. Severity of pain: At its worst the pain was moderate in the emergency department the pain is unchanged. The patient has experienced similar episodes in the past, a few times. The patient has not recently seen a physician. Pt reports chest pain that woke him up at 0400. Reports shortness of breath with it and radiation to back. States he has been having shortness of breath on exertion for the last couple of months. Reports he will get chest pain at times with exertion while at work. . Historical: - Allergies: 07:09 Codeine; sv - Home Meds: 05:53 aspirin 81 mg Oral TbEC 1 tab once daily [Active]; ea 08:45 escitalopram oxalate 10 mg Oral tab once daily [Active]; omeprazole 40 mg Oral cpDR sv once daily [Active]; lisinopril 20 mg Oral tab 1 tab once daily [Active]; doxazosin 8 mg Oral tab 1 tab once daily [Active]; rosuvastatin 5 mg Oral tab once daily [Active]; Fish Oil 1200 MG Oral 2 tab daily [Active]; Vitamin D3 2800 units daily oral [Active]; Potassium Chloride 275 mg Oral once daily [Active]; Vitamin C Oral daily [Active]; - PMHx: 05:53 Hypertension; High Cholesterol; GERD; enlarged prostate; Dry Eye; ea - Immunization history:: Adult Immunizations up to date. - Social history:: Smoking status: Patient denies any tobacco usage or history of. ROS: 06:23 Constitutional: Negative for fever, chills, and weight loss. kb 06:23 Cardiovascular: Positive for chest pain, Negative for edema, orthopnea, palpitations, paroxysmal nocturnal dyspnea. 06:23 Respiratory: Positive for dyspnea on exertion, shortness of breath, Negative for cough, hemoptysis, orthopnea, pleurisy, sputum production, wheezing. 06:23 All other systems are negative. Exam: 06:24 Constitutional: This is a well developed, well nourished patient who is awake, alert, kb and in no acute distress. Head/Face: Normocephalic, atraumatic. ENT: Moist Mucous membranes Cardiovascular: Regular rate and rhythm with a normal S1 and S2. No gallops, murmurs, or rubs. No pulse deficits. Respiratory: Respirations even and unlabored. No increased work of breathing, no retractions or nasal flaring. Abdomen/GI: Soft, non-tender. No distention Skin: Warm, dry with normal turgor. Normal color. MS/ Extremity: Pulses equal, no cyanosis. Neurovascular intact. Full, normal range of motion. Neuro: Awake and alert, GCS 15, oriented to person, place, time, and situation. Moves all extremities. Normal gait. Psych: Awake, alert, with orientation to person, place and time. Behavior, mood, and affect are within normal limits. Vital Signs: 05:55 BP 128 / 88; Pulse 73; Resp 20; Temp 98.6; Pulse Ox 94% on R/A; Weight 128.82 kg; ea Height 5 ft. 11 in. (180.34 cm); Pain 7/10; 07:00 BP 128 / 79 LA Sitting (auto/lg); Pulse 71; sv 07:02 BP 128 / 76 RA Sitting (auto/lg); Pulse 73; sv 07:54 BP 115 / 95; Pulse 78; Resp 20; Pulse Ox 91% ; sv 08:45 BP 119 / 63; Pulse 75; Resp 20; Pulse Ox 93% ; sv 09:30 BP 113 / 74; Pulse 69; Resp 18; Pulse Ox 92% ; sv 10:15 BP 111 / 73; Pulse 72; Resp 19; Pulse Ox 92% ; sv 05:55 Body Mass Index 39.61 (128.82 kg, 180.34 cm) ea MDM: 06:14 Patient medically screened. kb 06:23 The patient was given aspirin in the Emergency Department. Data reviewed: vital signs, kb nurses notes. Data interpreted: Pulse oximetry: on room air is 94 %. Interpretation: normal. 08:12 Counseling: I had a detailed discussion with the patient and/or guardian regarding: the kb historical points, exam findings, and any diagnostic results supporting the discharge/admit diagnosis, lab results, radiology results, the need for further work-up and treatment in the hospital. 12/17 05:53 Order name: Basic Metabolic Panel; Complete Time: 06:50 ea 12/17 05:53 Order name: CBC with Diff; Complete Time: 06:46 ea 12/17 05:53 Order name: LFT's; Complete Time: 06:50 12/17 05:53 Order name: Magnesium; Complete Time: 06:50 ea 12/17 05:53 Order name: NT PRO-BNP; Complete Time: 06:50 ea 12/17 05:53 Order name: PT-INR; Complete Time: 06:58 ea 12/17 05:53 Order name: Troponin (emerg Dept Use Only); Complete Time: 06:50 ea 12/17 07:40 Order name: COVID-19 : Document "Date of Symptom Onset" if Symptomatic. sv 12/17 09:28 Order name: SARS-COV-2 RT PCR; Complete Time: 09:29 EDDE 12/17 10:07 Order name: Urinalysis EDDE 12/17 11:28 Order name: T4 Free; Complete Time: 11:28 EDDE 12/17 11:28 Order name: Thyroid Stimulating Hormone; Complete Time: 11:28 EDDE 12/17 12:56 Order name: Troponin I; Complete Time: 12:58 EDDE 12/17 05:53 Order name: XRAY Chest (1 view); Complete Time: 07:33 ea 12/17 05:53 Order name: EKG; Complete Time: 05:54 ea 12/17 05:53 Order name: Cardiac monitoring; Complete Time: 06:59 ea 12/17 05:53 Order name: EKG - Nurse/Tech; Complete Time: 06:13 ea 12/17 05:53 Order name: IV Saline Lock; Complete Time: 06:14 ea 12/17 05:53 Order name: Labs collected and sent; Complete Time: 06:14 12/17 05:53 Order name: O2 Per Protocol; Complete Time: 06:03 ea 12/17 05:53 Order name: O2 Sat Monitoring; Complete Time: 06:03 ea 12/17 06:51 Order name: Bilateral blood pressure; Complete Time: 07:09 kb 12/17 09:01 Order name: Diet Heart Healthy; Complete Time: 09:01 ss 12/17 10:03 Order name: Echo with Doppler EDMS Administered Medications: 06:59 Drug: Aspirin Chewable Tablet 243 mg Route: PO; jb4 07:09 Follow up: Response: No adverse reaction sv Disposition Summary: 12/17/20 08:16 Hospitalization Ordered Hospitalization Status: Observation kb Provider: Rosales Lundy Condition: Stable kb Problem: new kb Symptoms: are unchanged kb Bed/Room Type: Standard kb Location: Telemetry/MedSurg (observation)(12/17/20 14:16) bd Room Assignment: [facility](12/17/20 14:16) bd Diagnosis - Chest pain, unspecified kb Forms: - Medication Reconciliation Form kb - SBAR form kb Signatures: Dispatcher [employer] EDMS Palmira Downs, FUTURES TRADER-C FUTURES TRADER-Ckb Carol Chavarria Stephanie, RN RN sv Bryson, James, RN MIKEY jb4 Fabby Moore RN MIKEY ea Corrections: (The following items were deleted from the chart) 08:30 07:41 CORONAVIRUS ordered. EDMS EDMS 08:47 08:45 Home Meds: Vitamin D Oral; 2000 IU; sv sv 08:47 08:45 Home Meds: Xiidra; sv sv 11:50 08:16 Telemetry/MedSurg (observation) kb sv 11:50 08:16 kb sv 14:16 11:50 [facility] ER HOLD sv bd 14:16 11:50 ERHOLD- sv bd
[2020-12-17] MEDS ORDERED: ONDANSETRON 4 MG/2 ML VIAL IV PRN (10:07)
[2020-12-17] MEDS ORDERED: ACETAMINOPHEN 500 MG TAB PO PRN (10:07)
[2020-12-17] MEDS ORDERED: LABETALOL 20 MG/4ML SYRINGE IV PRN (10:35)
[2020-12-17] MEDS ORDERED: HYDROCODONE/APAP 5/325 MG TAB PO PRN (10:36)
--- NOTE | 2020-12-17 10:38 | P.HP ---
Certification for Inpatient Patient admitted to: Inpatient With expected LOS: >2 Midnights Patient will require the following post-hospital care: None Practitioner: I am a practitioner with admitting privileges, knowledge of patient current condition, hospital course, and medical plan of care. Services: Services provided to patient in accordance with Admission requirements found in Title 42 Section 412.3 of the Code of Federal Regulations Patient History Date of Service: 12/17/20 Reason for admission: Chest pain History of Present Illness: Patient is a 60-year-old male with a past medical history significant for hypertension, HLD, GERD, BPH, depression who presents with complaint of chest pain located in the substernal chest area. Patient reported that when he woke up this morning he started having chest pain. Patient indicated that chest pain radiates to his back. Patient reports associated signs and symptoms of shortness of breath. Patient rated chest pain as 7/10 in severity and described pain as pressure in quality. Patient denies any other signs or symptoms. Symptoms are aggravated or relieved by nothing. Patient decided to present to the hospital due to worsening symptoms. Of note, patient reported that he has been having shortness of breath with exertion for a number of months. Allergies codeine [Codeine] Allergy (Mild, Verified 07/04/14 13:15) Itching/Hives/Rash Home medications list reviewed: No Home Medications: Aspirin [Aspirin EC] 81 mg PO DAILY 07/04/14 Doxazosin [Cardura*] 8 mg PO BEDTIME 07/04/14 Fish Oil/Dha/Epa [Fish Oil 1,200 mg Fish Oil] 2 each PO DAILY 07/04/14 Omeprazole [Prilosec] 40 mg PO DAILY 07/04/14 lisinopriL [Prinivil] 20 mg PO DAILY WITH BREAKFAST 07/04/14 Ascorbic Acid [Vitamin C] 1 cap PO DAILY 12/17/20 Cholecalciferol (Vitamin D3) [Vitamin D3] 2 cap PO DAILY 12/17/20 Escitalopram [Lexapro] 10 mg PO DAILY 12/17/20 Potassium Chloride 275 meq PO DAILY 12/17/20 Rosuvastatin Calcium 5 mg PO DAILY 12/17/20 - Past Medical/Surgical History -: HLD -: HTN -: BPH Past Surgical History: Reviewed- Non-Contributory - Family History Family History: Reviewed- Non-Contributory (reviewed and patient not aware of any family history) - Social History Smoking Status: Never smoker Alcohol use: Yes CD- Drugs: No Caffeine use: No Place of Residence: Home Review of Systems General: Unremarkable Eyes: Unremarkable ENT: Unremarkable Respiratory: Shortness of Breath, SOB with Excertion Cardiovascular: Chest Pain Gastrointestinal: Unremarkable Genitourinary: Unremarkable Musculoskeletal: Unremarkable Integumentary: Unremarkable Neurological: Unremarkable Physical Examination - Physical Exam General: Alert, In no apparent distress, Oriented x3 HEENT: Atraumatic, PERRLA, Mucous membr. moist/pink, EOMI, Sclerae nonicteric Neck: Supple, 2+ carotid pulse no bruit, No LAD, Without JVD or thyroid abnormality Respiratory: Clear to auscultation bilaterally, Normal air movement Cardiovascular: No edema, Regular rate/rhythm, Normal S1 S2 Capillary refill: <2 Seconds Gastrointestinal: Normal bowel sounds, Soft and benign, No tenderness Musculoskeletal: No tenderness Integumentary: No rashes, No breakdown Neurological: Normal gait, Normal speech, Normal tone, Normal affect Lymphatics: No axilla or inguinal lymphadenopathy External genitalia: Deferred Rectal: Deferred - Studies Laboratory Data (last 24 hrs) 12/17/20 06:12: PT 10.5, INR 0.91 12/17/20 06:12: WBC 7.00, Hgb 15.2, Hct 45.2, Plt Count 152 12/17/20 06:12: Sodium 139, Potassium 4.7, BUN 25 H, Creatinine 0.91, Glucose 133 H, Magnesium 2.1, Total Bilirubin 0.4, AST 13 L, ALT 34, Alkaline Phosphatase 71 Assessment and Plan - Plan --Chest pain of unclear etiology. Will trend troponin. Cardiology consulted. Echocardiogram pending. Telemetry to monitor for any significant arrhythmia. Further management per clipper machine operator. --Hypertension. Stable. Continue home medications. --HLD. Continue statin. --BPH. Continue home medication. --Depression. Continue home medication. --CKD 2. Stable. We will continue to monitor renal functions. --DVT prophylaxis with Lovenox sub I have had discussion about advanced directives with the patient during this hospital admission. Addressed code status and /or goals of care. Spent more than 15 minutes. Case discussed withpatient and nurse. The following document was completed using voice recognition software. This can produce fbi sharpshooter errors that can at times significantly distort words and phrases. Please interpret any aspect of the note that is nonsensical in light of this fact. Discharge Plan: Home Plan to discharge in: 48 Hours - Advance Directives Does patient have a Living Will: No Does patient have a Durable POA for Healthcare: No - Code Status/Comfort Care Code Status Assessed: Yes Code Status: Full Code Physician Review: Patient Assessed, Agree with Above Assessment and Plan Critical Care: No
--- NOTE | 2020-12-17 10:54 | EKG ---
Test Date: 2020-12-17 Test Time: 05:56:03 Price Lister: TLT MEASUREMENT RESULTS: Intervals: Rate: 74 DC: 132 QRSD: 80 QT: 352 QTc: 390 [place]: P: 54 DC: 132 QRS: 88 T: 46 INTERPRETIVE STATEMENTS: Normal sinus rhythm Normal ECG Compared to ECG 03/12/2019 23:16:26 No significant changes Electronically Signed On 12-17-20 10:53:28 CDT by Jay Sandra
[2020-12-17 11:28] VITALS: BMI 39.3
[2020-12-17 11:28] LABS: Thyroid Stimulating Hormone 0.583 uIU/mL (0.360-3.740)
[2020-12-17 16:20] VITALS: O2SAT 96
[2020-12-17 17:03] VITALS: BP 140/79; TEMP 98.1
--- NOTE | 2020-12-17 18:16 | CON ---
Date of Consultation: 12/17/2020 Reason For Consultation: Chest pain. History Of Present Illness: Mr. Duarte is a 60-year-old white male without any significant past ca rdia history. He does have a history of hypertension, dyslipidemia, and obesity, family history of heart disease. Came in with atypical chest pain, lasted for hours without any nausea, vomiting, diap horesis, PND, orthopnea, pedal edema, palpitations, or syncope. His pain was not exertional. His EK G, chest x-ray, troponin, BNP as well as an echocardiogram were all normal. He is pain-free now. Past Medical History: As stated above. Allergies: HE IS ALLERGIC TO CODEINE. Review of Systems: Negative. Social History: Negative. Family History: Positive for heart disease. Medications: At home are unknown. The patient does state that he takes statin and a blood pressure pill, but he does not know which one they are. Physical Examination: Vital Signs: Stable, afebrile. HEENT: Negative. Neck: Supple with no bruit. Chest: Clear to auscultation and percussion. Cardiac: Revealed a regular rhythm and rate. No murmurs, gallops, or rubs. Abdomen: Benign. Extremities: Revealed no clubbing, cyanosis, or edema. Diagnostic Data: All normal. Impression And Plan: Dyspnea on exertion, chest pain and the patient with multiple cardiac risk fact ors. Normal echocardiogram. No evidence of congestive heart failure. Myocardial infarction has rul ed out. I would continue his present regimen and he can go home. I would add a proton pump inhibito r. He needs an MPI done as an outpatient. CHERRY/MARCK Voice ID: [id number] Report ID: [id number]
--- NOTE | 2020-12-17 18:44 | P.DS ---
Admission Date: 12/17/20 Discharge Date: 12/17/20 Disposition: ROUTINE DISCHARGE Discharge Condition: FAIR Reason for Admission: Chest pain - Problems (1) Chest pain Current Visit: Yes Status: Acute (2) Essential hypertension Current Visit: Yes Status: Acute (3) GERD (gastroesophageal reflux disease) Current Visit: Yes Status: Acute Brief History of Present Illness: 60-year-old man with a history of hypertension, HLD, GERD, hypertension presented with a complaint of chest pain located in the substernal chest area. Patient reported waking up with chest pain on the morning of admission. Chest pain associated with shortness of breath. No aggravating or relieving factors. Patient also reports shortness of breath with exertion and intermittent cough. Initial troponin in the ED was negative, EKG unremarkable, chest x-ray showed no acute infiltrate, patient placed under observation for ACS rule out. Hospital Course: Troponin trended negative. Patient was seen by cardiology, his chest pain considered atypical. Patient also complaining of shortness of breath with exertion and intermittent nonproductive cough. Echocardiogram is done was unremarkable. Dr. Sandra recommend discharge for outpatient follow up with him for stress test. There is a concern for COPD and sleep apnea. Patient is also referred to Dr. Spivey for evaluation as an outpatient. Vital Signs/Physical Exam: Temp Pulse Resp BP Pulse Ox 98.1 F 63 22 H 140/79 96 12/17/20 16:00 12/17/20 16:00 12/17/20 16:00 12/17/20 16:00 12/17/20 16:00 General: Alert, In no apparent distress, Oriented x3 HEENT: Normocephalic, Mucous membr. moist/pink, Sclerae nonicteric Neck: Supple, JVD not distended Respiratory: Clear to auscultation bilaterally, Normal air movement Cardiovascular: No edema, Regular rate/rhythm, Normal S1 S2, No murmurs Gastrointestinal: Normal bowel sounds, Soft and benign, Non-distended, No tenderness Musculoskeletal: No swelling, No tenderness Integumentary: No rashes, No erythema Neurological: Normal speech, Normal strength at 5/5 x4 extr, Cranial nerves 3-12 intact Laboratory Data at Discharge: WBC 7.00 K/uL (4.3-10.9) 12/17/20 06:12 Hgb 15.2 g/dL (13.6-17.9) 12/17/20 06:12 Hct 45.2 % (39.6-49.0) 12/17/20 06:12 Plt Count 152 K/uL (152-406) 12/17/20 06:12 PT 10.5 SECONDS (9.5-12.5) 12/17/20 06:12 INR 0.91 12/17/20 06:12 Sodium 139 mmol/L (136-145) 12/17/20 06:12 Potassium 4.7 mmol/L (3.5-5.1) 12/17/20 06:12 BUN 25 mg/dL (7-18) H 12/17/20 06:12 Creatinine 0.91 mg/dL (0.55-1.3) 12/17/20 06:12 Glucose 133 mg/dL (74-106) H 12/17/20 06:12 Magnesium 2.1 mg/dL (1.8-2.4) 12/17/20 06:12 Total Bilirubin 0.4 mg/dL (0.2-1.0) 12/17/20 06:12 AST 13 U/L (15-37) L 12/17/20 06:12 ALT 34 U/L (12-78) 12/17/20 06:12 Alkaline Phosphatase 71 U/L (45-117) 12/17/20 06:12 Troponin I < 0.02 ng/mL (0.0-0.045) 12/17/20 12:20 Home Medications: Aspirin [Aspirin EC 81 MG] 81 mg PO DAILY 07/04/14 Doxazosin [Cardura*] 8 mg PO BEDTIME 07/04/14 Fish Oil/Dha/Epa [Fish Oil 1,200 mg Fish Oil] 2 each PO DAILY 07/04/14 Omeprazole [Prilosec] 40 mg PO DAILY 07/04/14 lisinopriL [Prinivil*] 20 mg PO DAILY WITH BREAKFAST 07/04/14 Ascorbic Acid [Vitamin C] 1 cap PO DAILY 12/17/20 Cholecalciferol (Vitamin D3) [Vitamin D3] 2 cap PO DAILY 12/17/20 Escitalopram [Lexapro*] 10 mg PO DAILY 12/17/20 Potassium Chloride 275 meq PO DAILY 12/17/20 Rosuvastatin Calcium 5 mg PO DAILY 12/17/20 Physician Discharge Instructions: Please follow up with Dr. Sandra. Call office at [phone] Sandra may arrange for stress test for you. Please follow up with him also for your Echocardiogram result. Diet: AHA Activity: Ad alverto Followup: Patricio Spivey MD [ACTIVE - CAN ADMIT] - 1-2 Weeks (Patient with dyspnea on exertion and intermittent cough. Please evaluate for COPD and obstructive sleep apnea.) Jay Sandra MD [ACTIVE - CAN ADMIT] - 1 Week () NONE,NONE [Primary Care Provider] -
[2020-12-17 18:52] LABS: Urine Appearance CLEAR (Clear); Urine Bilirubin NEGATIVE (Negative); Urine Blood NEGATIVE (Negative); Urine Color YELLOW (Yellow); Urine Glucose NEGATIVE (Negative); Urine Microscopic Reflex NO UMIC; Urine Protein NEGATIVE (Negative); Urine Specific Gravity 1.015 (1.005-1.030); Urine Urobilinogen 0.2 mg/dL (0.2-1.0); Urine pH 5.5 (5.0-7.0)
--- NOTE | 2020-12-18 07:31 | ECHO ---
HEIGHT: 5 ft 11 in WEIGHT: 282 lb 3.067 oz DATE OF STUDY: 12/17/[address]: Mike Xiong 2-DIMENSIONAL: YES M.MODE: YES DOPPLER: YES COLOR FLOW: YES TDS: PORTABLE: DEFINITY: BUBBLE STUDY: DIAGNOSIS: CHEST PAIN CARDIAC HISTORY: CATHERIZATION: NO SURGERY: NO PROSTHETIC VALVE: NO PACEMAKER: NO MEASUREMENTS (cm) DIASTOLIC (NORMALS) SYSTOLIC (NORMALS) IVSd 1.2 (0.6-1.2) LA Diam 2.7 (1.9-4.0) LVEF 61% LVIDd 4.9 (3.5-5.7) LVIDs 3.3 (2.0-3.5) %FS 33% LVPWd 1.2 (0.6-1.2) Ao Diam 2.7 (2.0-3.7) 2 DIMENSIONAL ASSESSMENT: RIGHT ATRIUM: NORMAL LEFT ATRIUM: NORMAL RIGHT VENTRICLE: NORMAL LEFT VENTRICLE: NORMAL TRICUSPID VALVE: NORMAL MITRAL VALVE: NORMAL PULMONIC VALVE: NORMAL AORTIC VALVE: NORMAL PERICARDIAL EFFUSION: NONE AORTIC ROOT: NORMAL LEFT VENTRICULAR WALL MOTION: DOPPLER/COLOR FLOW: COMMENTS: TECHNICALLY DIFFICULT STUDY. GROSSLY NORMAL LEFT VENTRICULAR SIZE AND FUNCTION. NO WALL MOTION ABNORMALITY. NO EFFUSION. TECHNOLOGIST: KATHARINE FERGUSON
[2020-12-18] MEDS ORDERED: ASPIRIN 81 MG CHEWABLE TABLET PO SCH (09:00)
[2020-12-18] MEDS ORDERED: ENOXAPARIN 40 MG/0.4 ML SQ SCH (09:00)
== END 2020-12-17 19:03 | disposition home or self-care (01) ==
LOC: ER 05:33 → ERHOLD 10:15 → INTOOBSV 10:15 → 2ND 15:10
PROVIDERS: ADMIT Internal Medicine; ATTEND Internal Medicine
DX: R07.89 Other chest pain (principal); I12.9 Hypertensive chronic kidney disease with stage 1 through stage 4 chronic kidney disease, or unspecified chronic kidney disease; N18.2 Chronic kidney disease, stage 2 (mild); K21.9 Gastro-esophageal reflux disease without esophagitis; R06.02 Shortness of breath; R05 Cough; E78.5 Hyperlipidemia, unspecified; E78.00 Pure hypercholesterolemia, unspecified; N40.0 Benign prostatic hyperplasia without lower urinary tract symptoms; F32.9 Major depressive disorder, single episode, unspecified; E66.9 Obesity, unspecified; Z68.39 Body mass index [BMI] 39.0-39.9, adult; Z20.822 Contact with and (suspected) exposure to COVID-19; Z79.82 Long term (current) use of aspirin; Z88.6 Allergy status to analgesic agent; Z82.49 Family history of ischemic heart disease and other diseases of the circulatory system
CPT/HCPCS: 93005; 93306; 85025; 80048; 36415; 83735; 85610; 80076; 84443; 81003; 84484 ×3; 84439; 83880; 71045; U0003; G0378 ×2; 99285

== ENCOUNTER 2021-04-18 05:18 | Emergency (ER) | payer BC ==
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
[2021-04-18] MEDS ORDERED: BENZONATATE 100 MG CAP PO ONE (07:03)
[2021-04-18 07:42] LABS: SARS-COV-2 RT PCR POSITIVE (NEGATIVE)
--- NOTE | 2021-04-18 08:28 | ER ---
Nurse's Notes [facility] Name: Dariel Duarte Age: 60 yrs Sex: Male : 1960 Arrival Date: 04/18/2021 Time: 05:22 Bed 12 Private MD: Diagnosis: Pneumonia due to SARS-associated coronavirus;SARS-associated coronavirus as the cause of diseases classified elsewhere Presentation: 04/18 05:33 Chief complaint: Patient states: I can't stop coughing, I will get to where I'm feeling vc1 better then it comes back worse. I've been coughing sense Wednesday, I've taken everything there is over the counter. Coronavirus screen: Vaccine status: Patient reports being unvaccinated. congestion, cough unrelated to allergies, difficulty breathing, fatigue, headache, muscle pain, shortness of breath, sore throat. Ebola Screen: No symptoms or risks identified at this time. Initial Sepsis Screen: Does the patient meet any 2 criteria? Yes Does the patient have a suspected source of infection? No. Patient's initial sepsis screen is negative. Risk Assessment: Do you want to hurt yourself or someone else? Patient reports no desire to harm self or others. Onset of symptoms is unknown. 05:33 Method Of Arrival: Ambulatory vc1 05:33 Acuity: FARZANA 4 vc1 Triage Assessment: 05:59 General: Appears in no apparent distress. ill, slender, Behavior is calm, cooperative, vc1 appropriate for age. Pain: Denies pain. Historical: - Allergies: 05:59 Codeine; vc1 - PMHx: 05:59 enlarged prostate; Dry Eye; GERD; High Cholesterol; Hypertension; vc1 - Immunization history:: Adult Immunizations up to date, Client reports having NOT received the Covid vaccine. - Social history:: Smoking status: Patient/guardian denies using tobacco, but has a distant history of tobacco abuse. Screenin:03 Abuse screen: Denies threats or abuse. Denies injuries from another. Nutritional ss screening: No deficits noted. Tuberculosis screening: Never had TB. Fall Risk None identified. 08:03 Abuse screen: Denies threats or abuse. Nutritional screening: No deficits noted. tw2 Tuberculosis screening: No symptoms or risk factors identified. Fall Risk None identified. Assessment: 08:04 Reassessment: Patient appears in no apparent distress at this time. Patient and/or tw2 family updated on plan of care and expected duration. Pain level reassessed. Patient is alert, oriented x 3, equal unlabored respirations, skin warm/dry/pink. pt states " cough pills really didn't do any good". provider notified. 08:19 Reassessment: provider at bedside at this time. tw2 Vital Signs: 05:33 BP 134 / 90; Pulse 89; Resp 22; Temp 97.7; Pulse Ox 94% on R/A; Weight 132.45 kg; vc1 Height 5 ft. 11 in. (180.34 cm); Pain 0/10; 08:04 BP 132 / 97; Pulse 84; Resp 20; Pulse Ox 97% on R/A; tw2 05:33 Body Mass Index 40.73 (132.45 kg, 180.34 cm) vc1 ED Course: 05:22 Patient arrived in ED. wm 05:59 Triage completed. vc1 06:00 Arm band placed on right wrist. vc1 06:11 XRAY Chest (1 view) In Process Unspecified. EDMS 06:52 Strep Sent. vc1 06:52 COVID-19/FLU A+B/RSV (Document "Date of Onset" if Symptomatic) Sent. vc1 06:52 COVID-19/FLU A+B/RSV Sent. vc1 07:02 Ganesh Mendosa PA is PHCP. jr8 07:02 Ladi Garnica MD is Attending Physician. jr8 08:00 Bushra Velázquez, MIKEY is Primary Nurse. tw2 08:00 Bed in low position. Call light in reach. Pulse ox on. NIBP on. tw2 08:03 Patient has correct armband on for positive identification. Bed in low position. Call ss light in reach. 08:20 No provider procedures requiring assistance completed. tw2 08:46 Patient did not have IV access during this emergency room visit. ss Administered Medications: 07:04 Drug: Tessalon Perle (benzonatate) 200 mg Route: PO; vc1 08:36 Follow up: Response: No adverse reaction ss 08:45 Drug: SOLU-Medrol (methylPREDNISolone sodium succinate) 125 mg Route: IM; Site: right ss gluteus; 08:54 Follow up: Response: No adverse reaction ss Outcome: 08:27 Discharge ordered by MD. jr8 08:46 Condition: good ss 08:46 Instructed on discharge instructions, follow up and referral plans. medication usage, Demonstrated understanding of instructions, follow-up care, medications, Prescriptions given X 3. 08:54 Discharged to home ambulatory. 09:09 Patient left the ED. ss Signatures: Dispatcher [employer] EDMS Leandra Taylor RN RN Ganesh Mendosa PA PA jr8 Bushra Velázquez RN RN jez2 Maru Pandey Stacey Flores RN RN vc1
--- NOTE | 2021-04-18 08:28 | EDPHYS ---
Physician Documentation [facility] Name: Dariel Duarte Age: 60 yrs Sex: Male : 1960 Arrival Date: 04/18/2021 Time: 05:22 Bed 12 Private MD: ED Physician Ladi Garnica HPI: 04/18 10:32 This 60 yrs old Unknown Male presents to ER via Ambulatory with complaints of Cough, jr8 Chest Congestion. 10:32 The patient has not experienced similar symptoms in the past. The patient has not jr8 recently seen a physician. This is a 60-year-old male patient that presented to the emergency room for continued cough and congestion. Patient was diagnosed with COVID Wednesday last week. Denies any shortness of breath, fevers, or any other symptoms other than the persistent cough and mild wheezing on occasion.. Historical: - Allergies: 05:59 Codeine; vc1 - PMHx: 05:59 enlarged prostate; Dry Eye; GERD; High Cholesterol; Hypertension; vc1 - Immunization history:: Adult Immunizations up to date, Client reports having NOT received the Covid vaccine. - Social history:: Smoking status: Patient/guardian denies using tobacco, but has a distant history of tobacco abuse. ROS: 10:32 Constitutional: Negative for fever, chills, and weight loss, Cardiovascular: Negative jr8 for chest pain, palpitations, and edema, Abdomen/GI: Negative for abdominal pain, nausea, vomiting, diarrhea, and constipation, Neuro: Negative for headache, weakness, numbness, tingling, and seizure. 10:32 Respiratory: Positive for cough, wheezing, Negative for dyspnea on exertion, shortness of breath, sputum production. Exam: 10:32 Constitutional: This is a well developed, well nourished patient who is awake, alert, jr8 and in no acute distress. ENT: Nares patent. No nasal discharge, no septal abnormalities noted. Tympanic membranes are normal and external auditory canals are clear. Oropharynx with no redness, swelling, or masses, exudates, or evidence of obstruction, uvula midline. Mucous membranes moist. Neck: Trachea midline, no thyromegaly or masses palpated, and no cervical lymphadenopathy. Supple, full range of motion without nuchal rigidity, or vertebral point tenderness. No Meningismus. Cardiovascular: Regular rate and rhythm with a normal S1 and S2. No gallops, murmurs, or rubs. Normal PMI, no JVD. No pulse deficits. Abdomen/GI: Soft, non-tender, with normal bowel sounds. No distension or tympany. No guarding or rebound. No evidence of tenderness throughout. Back: No spinal tenderness. No costovertebral tenderness. Full range of motion. Skin: Warm, dry with normal turgor. Normal color with no rashes, no lesions, and no evidence of cellulitis. MS/ Extremity: Pulses equal, no cyanosis. Neurovascular intact. Full, normal range of motion. Neuro: Awake and alert, GCS 15, oriented to person, place, time, and situation. Cranial nerves II-XII grossly intact. Motor strength 5/5 in all extremities. Sensory grossly intact. Cerebellar exam normal. Normal gait. 10:32 Respiratory: the patient does not display signs of respiratory distress, Respirations: normal, Breath sounds: wheezing: expiratory that is mild, is heard in the left posterior lower lobe, right posterior middle lobe and right posterior lower lobe. Vital Signs: 05:33 BP 134 / 90; Pulse 89; Resp 22; Temp 97.7; Pulse Ox 94% on R/A; Weight 132.45 kg; vc1 Height 5 ft. 11 in. (180.34 cm); Pain 0/10; 08:04 BP 132 / 97; Pulse 84; Resp 20; Pulse Ox 97% on R/A; tw2 05:33 Body Mass Index 40.73 (132.45 kg, 180.34 cm) vc1 MDM: 07:03 Patient medically screened. [facility] 08:25 Data reviewed: vital signs, nurses notes, lab test result(s), radiologic studies, plain jr8 films. Data interpreted: Pulse oximetry: on room air is 97 %. Interpretation: normal. Counseling: I had a detailed discussion with the patient and/or guardian regarding: the historical points, exam findings, and any diagnostic results supporting the discharge/admit diagnosis, lab results, radiology results, the need for outpatient follow up, a family practitioner, to return to the emergency department if symptoms worsen or persist or if there are any questions or concerns that arise at home. ED course: Patient's oxygen saturation went to 95 to 97%. No shortness of breath at this time. Continues to just complain of persistent cough which is to be expected with COVID. Otherwise patient is hemodynamically stable. Close return precautions given to patient because of his cough and the mild changes seen on his chest x-ray. Patient understands this and will immediately come back if he were to worsen any point time.. 04/18 05:34 Order name: COVID-19/FLU A+B/RSV (Document "Date of Onset" if Symptomatic) 04/18 05:35 Order name: COVID-19/FLU A+B/RSV; Complete Time: 07:44 EDMS 04/18 05:34 Order name: XRAY Chest (1 view) bb 04/18 05:38 Order name: Strep ds4 04/18 05:39 Order name: Group A Streptococcus Rapid Sc; Complete Time: 06:59 EDMS 04/18 06:04 Order name: Throat Culture EDMS Administered Medications: 07:04 Drug: Tessalon Perle (benzonatate) 200 mg Route: PO; vc1 08:36 Follow up: Response: No adverse reaction ss 08:45 Drug: SOLU-Medrol (methylPREDNISolone sodium succinate) 125 mg Route: IM; Site: right ss gluteus; 08:54 Follow up: Response: No adverse reaction ss Disposition Summary: 04/18/21 08:27 Discharge Ordered Location: Home jr8 Problem: new jr8 Symptoms: are unchanged jr8 Condition: Stable jr8 Diagnosis - Pneumonia due to SARS-associated coronavirus jr8 - SARS-associated coronavirus as the cause of diseases classified elsewhere jr8 Followup: jr8 - With: Private Physician - When: 1 week - Reason: Recheck today's complaints, Continuance of care, Re-evaluation by your physician Discharge Instructions: - COVID-19 jr8 - Discharge Summary Sheet tw2 Forms: - Medication Reconciliation Form jr8 - Work release form tw2 - Thank You Letter jr8 - Antibiotic Education jr8 - Prescription Opioid Use jr8 Prescriptions: - promethazine-DM 6.25-15 mg/5 mL Oral syrup - take 5 milliliter by ORAL route every 4-6 hours As needed as needed, not to jr8 exceed 30 mL in 24 hours; 110 milliliter; Refills: 0, Product Selection Permitted - Prednisone 20 mg Oral Tablet - take 1 tablet by ORAL route every 12 hours for 7 days; 14 tablet; Refills: 0, jr8 Product Selection Permitted - Zithromax Z-Declan 250 mg Oral Tablet - take 1 tablet by ORAL route as directed for 5 days Day 1 - take two (2) tablets jr8 one time. Day 2, 3, 4 , 5 take one (1) tablet once daily.; 6 tablet; Refills: 0, Product Selection Permitted Addendum: 04/20/2021 16:19 Co-signature as Attending Physician, Ladi Garnica MD I agree with the assessment and s p3 plan of care. Signatures: Dispatcher [employer] EDOK Leandra Taylor RN RN ss Ganesh Mendosa PA PA jr8 Ladi Garnica MD MD sp3 Stacey Flores RN RN vc1 Corrections: (The following items were deleted from the chart) 04/18 10:33 10:32 This is a 60-year-old male patient that presented to the emergency room for jr8 continued cough and congestion. Patient was diagnosed with COVID Wednesday last week. Denies any shortness of breath, fevers, or any other symptoms other than the persistent cough.. jr8
[2021-04-18] MEDS ORDERED: METHYLPREDNISOLONE 125 MG INJ ONE (08:40)
--- NOTE | 2021-04-18 09:11 | RAD REPORT ---
EXAM DESCRIPTION: RAD - Chest Single View - 04/18/2021 6:12 am CLINICAL HISTORY: Congestion;Cough COMPARISON: Portable 12/17/2020 TECHNIQUE: AP portable chest image was obtained 04/18/2021 6:12 am . FINDINGS: No peripheral mass or consolidation. Interstitial pattern is similar to comparison. The ve ry large body habitus accentuates all chest findings. Mild interstitial edema or interstitial infiltr ate cannot be excluded. Heart and vasculature are normal. No measurable pleural effusion and no pneumothorax. No acute bony abnormality seen. No acute aortic findings suspected. IMPRESSION: Stable portable chest with no focal consolidation. Interstitial pattern is prominent, accentuated by above detailed exam limitations. Interstitial edema or infiltrate could be masked.
[2021-04-18 09:18] VITALS: TEMP 97.7
[2021-04-18 09:23] VITALS: BP 132/97; O2SAT 97
== END 2021-04-18 09:09 | disposition home or self-care (01) ==
LOC: ER 05:18
DX: U07.1 COVID-19 (principal); J12.82 Pneumonia due to coronavirus disease 2019; Z88.6 Allergy status to analgesic agent
CPT/HCPCS: 87070; 87081; 0241U; 71045; 96372; 99284; J2930

== ENCOUNTER 2022-10-02 08:58 | Emergency (ER) | payer BC ==
--- OUTSIDE RECORDS SUMMARY | 2022-10-02 09:04 | XMS REPORT | Continuity of Care Document ---
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 Kathy Zapien [id number] [place] [id number] [place] [id number] [facility] 2019-08-02 2019-08-02 Emergency X SUMIT RUST ERT [id number] [employer] 12:12:50 12:12:[address] [facility] Results Test Description Test Time Test Comments Results Result Comments Source URINALYSIS 2019-08-02 18:12:00 Test Item Value Reference Range Interpretation Comme nts APPEARANCE (test code = Clear Clear 3144860606) COLOR (test code = 5946815487) Yellow Yellow PH (test code = 7353468217) 4.8-8.0 SP GRAVITY (test code = 1.003-1.030 3971525545) GLU U QUAL (test code = Normal Normal 1374460500) BLOOD (test code = 4438310468) Negative Negative KETONES (test code = 2539466215) Negative Negative PROTEIN (test code = 2887-8) Negative Negative UROBILIN (test code = Normal Normal 3274367019) BILIRUBIN (test code = Negative Negative 2947071061) NITRITE (test code = 0172598130) Negative Negative LEUK BING (test code = Negative Negative 1398084008) RBC/HPF (test code = 6496489103) See_Comment [Automated message] The system which ge nerated this result transmit lucy reference range: 0 - 3 HP F. The reference range was not used to interpret th is result as normal/abnormal . WBC/HPF (test code = 0968002645) See_Comment [Automated message] The system which ge nerated this result transmit lucy reference range: 0 - 5 HP F. The reference range was not used to interpret th is result as normal/abnormal . BACTERIA (test code = Negative Negative 1339325235) MUCOUS (test code = 2662244600) Slight Negative LPF A SPERM (test code = 5865997399) See_Comment [Automated message] The system which ge nerated this result transmit lucy reference range: <=1 HPF. The reference range was not u sed to interpret this result as normal/abnormal . Lab Interpretation (test code = Abnormal 83246-4) [facility]
--- NOTE | 2022-10-02 09:21 | EDPHYS ---
Physician Documentation [facility] Name: Dariel Duarte Age: 62 yrs Sex: Male : 1960 Arrival Date: 10/02/2022 Time: 08:58 Bed 10 Private MD: Kamaljit Oliva ED Physician Aureliano Roblero HPI: 10/02 09:09 This 62 yrs old Male presents to ER via Unassigned with complaints of Shoulder Pain. kb 09:11 The patient or guardian complains of decreased range of motion, pain, tenderness. left kb shoulder. 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 Onset: The symptoms/episode began/occurred yesterday. Modifying factors: the symptoms are alleviated by nothing. The symptoms are aggravated by movement. Associated signs and symptoms: The patient has no apparent associated signs or symptoms. Severity of symptoms: At their worst the symptoms were moderate, in the emergency department the symptoms are unchanged. Treatment prior to arrival includes: no previous treatment. The patient has not experienced similar symptoms in the past. The patient has not recently seen a physician. Pt reports he was working yesterday and started having left shoulder pain. Reports he has had similar pain in the past, but this time it is worse. States "I just need a cortisone shot.". Historical: - Allergies: 09:09 Codeine; cm10 - PMHx: 09:09 Dry Eye; enlarged prostate; GERD; High Cholesterol; Hypertension; cm10 - Immunization history:: Adult Immunizations unknown. - Social history:: Smoking status: Patient/guardian denies using tobacco, the patient reports quitting approximately 16 years ago. ROS: 09:09 Constitutional: Negative for fever, chills, and weight loss. kb 09:09 MS/extremity: Positive for decreased range of motion, pain, tenderness. 09:09 All other systems are negative. Exam: 09:09 Constitutional: This is a well developed, well nourished patient who is awake, alert, kb and in no acute distress. Head/Face: Normocephalic, atraumatic. ENT: Moist Mucous membranes Cardiovascular: Regular rate and rhythm with a normal S1 and S2. No gallops, murmurs, or rubs. No pulse deficits. Respiratory: Respirations even and unlabored. No increased work of breathing. Talking in full sentences Abdomen/GI: Soft, non-tender. No distention Skin: Warm, dry with normal turgor. Normal color. Neuro: Awake and alert, GCS 15, oriented to person, place, time, and situation. Moves all extremities. Normal gait. 09:09 Musculoskeletal/extremity: Extremities: grossly normal except: noted in the posterior aspect of left shoulder: decreased ROM, pain, tenderness, ROM: limited active range of motion due to pain, in the posterior aspect of left shoulder, Circulation is intact in all extremities. Sensation intact. Vital Signs: 09:05 BP 138 / 88; Pulse 92; Resp 18; Temp 98.4; Pulse Ox 98% on R/A; Weight 127.01 kg; cm10 Height 5 ft. 11 in. ; Pain 10; 09:05 Body Mass Index 39.05 (127.01 kg, 180.34 cm) cm10 09:05 Pain Scale: Adult cm10 MDM: 09:02 Patient medically screened. kb 09:10 Differential diagnosis: tendonitis, radiculopathy, strain. Data reviewed: vital signs, kb nurses notes. Test considered but Not performed: X-ray: shoulder x-ray considered, but pt does not want x-ray. Counseling: I had a detailed discussion with the patient and/or guardian regarding: the historical points, exam findings, and any diagnostic results supporting the discharge/admit diagnosis, the need for outpatient follow up, a family practitioner, a orthopedic surgeon, to return to the emergency department if symptoms worsen or persist or if there are any questions or concerns that arise at home. Administered Medications: 09:20 Drug: Dexamethasone IM 10 mg Route: IM; Site: left ventrogluteal; cm10 09:53 Follow up: Response: No adverse reaction cm10 09:20 Drug: Ketorolac IM 30 mg Route: IM; Site: right ventrogluteal; cm10 09:53 Follow up: Response: No adverse reaction cm10 Disposition: 17:46 Co-signature as Attending Physician, Aureliano Roblero MD I reviewed the patient's care rn provided by the Advanced Practice Provider and agree with the diagnosis and treatment plan. Disposition Summary: 10/02/22 09:20 Discharge Ordered Location: Home kb Condition: Stable kb Diagnosis - Pain in left shoulder kb Followup: kb - With: Emergency Department - When: As needed - Reason: Worsening of condition Followup: kb - With: Private Physician - When: 2 - 3 days - Reason: Recheck today's complaints, Continuance of care, Re-evaluation by your physician Discharge Instructions: - Discharge Summary Sheet kb - Shoulder Pain, [id number] kb - Cervical Radiculopathy, [id number] kb Forms: - Medication Reconciliation Form kb - Thank You Letter kb - Antibiotic Education kb - Prescription Opioid Use kb - Work release form ll1 Prescriptions: - Prednisone 20 mg Oral Tablet - take 1 tablet by ORAL route once daily for 5 days; 5 tablet; Refills: 0, kb Product Selection Permitted - Cyclobenzaprine 10 mg Oral Tablet - take 1 tablet by ORAL route every 8 hours As needed; 21 tablet; Refills: 0, kb Product Selection Permitted Signatures: Palmira Downs, RIMAC RADHA-Aureliano Garcia MD MD rn Martinez, Clarissa, RN RN 10
--- NOTE | 2022-10-02 09:21 | ER ---
Nurse's Notes [facility] Name: Dariel Duarte Age: 62 yrs Sex: Male : 1960 Arrival Date: 10/02/2022 Time: 08:58 Bed 10 Private MD: Kamaljit Oliva Diagnosis: Pain in left shoulder Presentation: 10/02 09:05 Chief complaint: Patient states: Left shoulder pain onset yesterday. Pt states that he cm10 was at work when the pain started. Pt states that the pain radiates down his left arm to his fingers. Coronavirus screen: Vaccine status: Patient reports being unvaccinated. Client denies travel out of the [place] in the last 14 days. At this time, the client does not indicate any symptoms associated with coronavirus-19. Ebola Screen: Patient denies travel to an Ebola-affected area in the 21 days before illness onset. Initial Sepsis Screen: Does the patient meet any 2 criteria? No. Patient's initial sepsis screen is negative. Does the patient have a suspected source of infection? No. Patient's initial sepsis screen is negative. Risk Assessment: Do you want to hurt yourself or someone else? Patient reports no desire to harm self or others. Onset of symptoms was October 01, 2022. 09:05 Method Of Arrival: Ambulatory cm10 09:05 Acuity: FARZANA 4 cm10 Historical: - Allergies: 09:09 Codeine; cm10 - PMHx: 09:09 Dry Eye; enlarged prostate; GERD; High Cholesterol; Hypertension; cm10 - Immunization history:: Adult Immunizations unknown. - Social history:: Smoking status: Patient/guardian denies using tobacco, the patient reports quitting approximately 16 years ago. Screenin:52 [facility] ED Fall Risk Assessment (Adult) History of falling in the last 3 months, cm10 including since admission. [facility] ED Fall Risk Assessment (Adult) History of falling in the last 3 months, including since admission No falls in past 3 months (0 pts) Confusion or Disorientation No (0 pts) Intoxicated or Sedated No (0 pts) Impaired Gait No (0 pts) Mobility Assist Device Used No (0 pt) Altered Elimination No (0 pt) Score/Fall Risk Level 0 - 2 = Low Risk. Abuse screen: Denies threats or abuse. Denies injuries from another. Nutritional screening: No deficits noted. Tuberculosis screening: No symptoms or risk factors identified. Assessment: 09:41 General: Appears in no apparent distress. Behavior is calm, cooperative. Pain: cm10 Complains of pain in left arm. Neuro: No deficits noted. Level of Consciousness is awake, alert, Oriented to person, place, time, situation. Respiratory: No deficits noted. Airway is patent Respiratory effort is even, unlabored, Respiratory pattern is regular, symmetrical. Vital Signs: 09:05 BP 138 / 88; Pulse 92; Resp 18; Temp 98.4; Pulse Ox 98% on R/A; Weight 127.01 kg; cm10 Height 5 ft. 11 in. ; Pain 10; 09:05 Body Mass Index 39.05 (127.01 kg, 180.34 cm) cm10 09:05 Pain Scale: Adult cm10 ED Course: 09:00 Patient arrived in ED. am2 09:00 Kamaljit Oliva DO is Private Physician. am2 09:02 Palmira Downs FNP-C is [facility]. kb 09:02 Aureliano Roblero MD is Attending Physician. kb 09:09 Triage completed. cm10 09:10 Arm band placed on Patient placed in an exam room, on a stretcher. cm10 09:24 Darby Torres, RN is Primary Nurse. ll1 09:56 Patient has correct armband on for positive identification. cm10 09:56 No provider procedures requiring assistance completed. Patient did not have IV access cm10 during this emergency room visit. Administered Medications: 09:20 Drug: Dexamethasone IM 10 mg Route: IM; Site: left ventrogluteal; cm10 09:53 Follow up: Response: No adverse reaction cm10 09:20 Drug: Ketorolac IM 30 mg Route: IM; Site: right ventrogluteal; cm10 09:53 Follow up: Response: No adverse reaction cm10 Medication: 09:56 VIS not applicable for this client. cm10 Outcome: 09:20 Discharge ordered by . kb 09:56 Discharged to home ambulatory. cm10 09:56 Condition: good 09:56 Discharge instructions given to patient, Instructed on discharge instructions, follow up and referral plans. Demonstrated understanding of instructions, follow-up care, medications, Prescriptions given X 2. 09:57 Patient left the ED. cm10 Signatures: Palmira Downs FNP-C FNP-Ckb Moreno, Trudy am2 Darby Torres, RN RN ll1 Bridget Romero, RN RN cm10
[2022-10-02] MEDS ORDERED: KETOROLAC 30 MG/ML INJ ONE (09:22)
[2022-10-02] MEDS ORDERED: dexAMETHasone 10 MG/ML VIAL ONE (09:22)
[2022-10-02 10:02] VITALS: BP 138/88; TEMP 98.4; O2SAT 98
== END 2022-10-02 09:57 | disposition home or self-care (01) ==
LOC: ER 08:58
DX: M25.512 Pain in left shoulder (principal)
CPT/HCPCS: 96372; 99284; J1100

== ENCOUNTER 2023-09-03 05:26 | Emergency (ER) | payer BC ==
--- OUTSIDE RECORDS SUMMARY | 2023-09-03 05:29 | XMS REPORT | Continuity of Care Document ---
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 08:45:00 Outpatient STEPHANE CANDY HINES [id number] [facility] 2022-06-25 08:15:00 2022-06-25 08:15:00 Outpatient PREZAS, JEN CANDY HINES [id number] [facility] 2022-06-24 00:00:00 2022-06-24 00:00:00 Outpatient LOGAN, DEISI CANDY HINES [id number] [facility] 2022-05-22 14:00:00 2022-05-22 14:00:00 Outpatient PREZAS, JEN HINES [id number] [facility] 2022-03-12 00:00:00 2022-03-12 00:00:00 Outpatient PREZAS, JEN HINES [id number] [facility] 2022-03-12 00:00:00 2022-03-12 00:00:00 Outpatient JEN OLIVA CANDY [id number] [facility] 2022-03-09 16:30:00 2022-03-09 16:30:00 Outpatient JEN OLIVA CANDY [id number] [facility] 2022-01-19 00:00:00 2022-01-19 00:00:00 Outpatient JEN OLIVA CANDY HINES [id number] [facility] 2021-11-14 08:00:00 2021-11-14 08:00:00 Outpatient JEN OLIVA CANDY [id number] [facility] 2021-10-24 08:30:00 2021-10-24 08:30:00 Outpatient LOGANISAACLOUIS HINES [id number] [facility] 2021-10-15 10:15:00 2021-10-15 10:45:00 Office Visit Jen Oliva [id number] [facility] 2021-10-07 00:00:00 2021-10-07 00:00:00 Outpatient LOGAN DEISI HINES [id number] [facility] 2021-09-29 00:00:00 2021-09-29 00:00:00 Outpatient DEISI FORD [id number] [facility] 2021-09-23 00:00:00 2021-09-23 00:00:00 Outpatient DEISI FORD [id number] [facility] 2021-09-19 08:00:00 2021-09-19 08:00:00 Outpatient DEISI FORD [id number] [facility] 2021-09-17 00:00:00 2021-09-17 00:00:00 Outpatient DEISI FORD [id number] [facility] 2021-09-17 00:00:00 2021-09-17 00:00:00 Outpatient DEISI FORD CANDY HINES [id number] [facility] 2021-09-15 10:00:00 2021-09-15 10:00:00 Outpatient LAB90 CANDY HINES [id number] [facility] 2021-09-15 09:30:00 2021-09-15 09:45:00 Office Visit DaytonDeisi perry [facility] [id number] [facility] 2021-07-25 00:00:00 2021-07-25 00:00:00 Outpatient DEISI FORD CANDY HINES [id number] [facility] 2021-07-18 08:15:00 2021-07-18 08:45:00 Office Visit [place] perry [facility] [id number] [facility] 2021-05-22 00:00:00 2021-05-22 00:00:00 Outpatient SHERLYN BLEVINS [id number] [facility] 2021-04-09 15:40:00 2021-04-09 15:40:00 Outpatient OKU41-BYI CANDY HINES [id number] [facility] 2021-04-09 15:20:00 2021-04-09 15:20:00 Outpatient TESTING, PL CANDY HINES [id number] [facility] 2021-04-02 16:30:00 2021-04-02 16:30:00 Outpatient LOGANDEISI PERRY CANDY HINES [id number] [facility] 2021-03-26 00:00:00 2021-03-26 00:00:00 Outpatient SHERLYN BLEVINS [id number] [facility] 2021-03-05 11:30:00 2021-03-05 12:00:00 Office Visit LoganDeisi perry [facility] [id number] [facility] 2021-03-05 00:00:00 2021-03-05 00:00:00 Outpatient LOGANDEISI PERRY [id number] [facility] 2019-08-02 12:12:50 2019-08-02 13:32:00 Emergency Kathy Arana [facility] [id number] [facility] 2019-08-02 12:12:50 2019-08-02 13:32:00 Emergency Kathy Arana [facility] [id number] 2019-08-02 12:12:50 2019-08-02 12:12:50 Emergency X KATHY ARANA [facility] ERT [id number] [facility] Results Test Description Test Time Test Comments Results Result Co mments Source [facility]
[2023-09-03 06:14] LABS: Absolute Basophils 0.1 K/uL (0-0.5); Absolute Eosinophils 0.2 K/uL (0-0.5); Absolute Lymphocytes (CBC) 1.1 K/uL (0.7-4.9); Absolute Monocytes 0.6 K/uL (0.1-1.3); Absolute Neutrophil 7.5 K/uL (1.8-8.0); Basophils % 0.9 % (0-1.3); Eosinophils % 2.1 % (0-4.4); Hemoglobin 15.5 g/dL (13.6-17.9); Lymphocytes % 11.4 % (15.3-44.8); MCH 28.6 pg (27.0-35.0); MCHC 32.4 g/dL (32.0-36.0); MCV 88.5 fL (80-100); MPV 9.9 fL (7.6-11.3); Monocytes % 6.4 % (3.3-12.3); Neutrophils % 79.2 % (41.7-73.7); Nucleated Red Blood Cells % 0.3 % (0-0); Platelets 187 thou/uL (152-406); RBC Red Blood Cell Count 5.42 M/uL (4.33-5.43); Red Cell Distribution Width 14.8 % (12.1-15.2)
[2023-09-03 06:15] LABS: PT Prothrombin Time 11.5 SECONDS (9.5-12.5); Protime INR 1.05
[2023-09-03 06:30] LABS: Albumin 3.7 g/dL (3.4-5.0); Albumin/Globulin Ratio 0.9 (1.1-1.8); Anion Gap 8.9 mEq/L (5.0-15.0); Bilirubin Direct 0.2 mg/dL (0-0.2); Bilirubin Indirect, Calculated 0.6 mg/dL (0.2-0.8); Bilirubin Total 0.8 mg/dL (0.2-1.0); Magnesium 2.1 mg/dL (1.6-2.4); Potassium 3.9 mEq/L (3.5-5.1); Protein, Total 7.7 g/dL (6.4-8.2); Troponin High Sensitivity 37.5 pg/mL (<58.9)
[2023-09-03] MEDS ORDERED: NA CHLORIDE 0.9% 50 ML ONE (06:51)
[2023-09-03] MEDS ORDERED: CEFTRIAXONE 1000 MG/VIAL ONE (06:51)
--- NOTE | 2023-09-03 07:00 | EDPHYS ---
Physician Documentation [facility] Name: Dariel Duarte Age: 63 yrs Sex: Male : 1960 Arrival Date: 09/03/2023 Time: 05:26 Bed 13 Private MD: ED Physician Ladi Garnica HPI: 09/02 05:58 This 63 yrs old Male presents to ER via Ambulatory with complaints of Shortness Of sp3 Breath. 05:58 63-year-old male with a history of hyperlipidemia, hypertension, diabetes, GERD now sp3 presents to the ED with chief complaint shortness of breath on exertion and peripheral edema. No prior cardiovascular disease or prior CHF noted. No prior IA. Patient states symptoms have been going on for 2 to 3 days. Does report mild cough with frothy sputum particularly during shortness of breath episodes. He denies fever, URI symptoms, sore throat, known sick contacts, travel history, prolonged immobilization, prior DVT or PE, or any other signs or symptoms on ROS at this time.. Historical: - Allergies: 05:43 Codeine; pf1 - PMHx: 05:43 Dry Eye; enlarged prostate; GERD; High Cholesterol; Hypertension; Diabetes mellitus; pf1 05:44 HS; pf1 - PSHx: 05:43 prostate; right arm; pf1 - Immunization history:: Adult Immunizations not up to date, Client reports having NOT received the Covid vaccine. Last tetanus immunization: < 10 years ago Flu vaccine is not up to date. - Infectious Disease History:: Denies. - Social history:: Smoking status: Patient/guardian denies using tobacco, the patient reports quitting approximately 14 years ago, Patient/guardian denies using alcohol, street drugs. ROS: 05:59 Constitutional: Negative for fever, chills, and weight loss, Eyes: Negative for injury, sp3 pain, redness, and discharge, Neck: Negative for injury, pain, and swelling, Cardiovascular: Negative for chest pain, palpitations, and edema, Abdomen/GI: Negative for abdominal pain, nausea, vomiting, diarrhea, and constipation, Back: Negative for injury and pain, : Negative for injury, bleeding, discharge, and swelling, Skin: Negative for injury, rash, and discoloration, Neuro: Negative for headache, weakness, numbness, tingling, and seizure, Psych: Negative for depression, anxiety, suicide ideation, homicidal ideation, and hallucinations, Allergy/Immunology: Negative for hives, rash, and allergies, Endocrine: Negative for neck swelling, polydipsia, polyuria, polyphagia, and marked weight changes, Hematologic/Lymphatic: Negative for swollen nodes, abnormal bleeding, and unusual bruising, 05:59 All other systems are negative, Exam: 05:59 Constitutional: This is a well developed, well nourished patient who is awake, alert, sp3 and in no acute distress. Head/Face: Normocephalic, atraumatic. Eyes: Pupils equal round and reactive to light, extra-ocular motions intact. Lids and lashes normal. Conjunctiva and sclera are non-icteric and not injected. Cornea within normal limits. Periorbital areas with no swelling, redness, or edema. Neck: Trachea midline, no thyromegaly or masses palpated, and no cervical lymphadenopathy. Supple, full range of motion without nuchal rigidity, or vertebral point tenderness. No Meningismus. Chest/axilla: Normal chest wall appearance and motion. Nontender with no deformity. No lesions are appreciated. Cardiovascular: Regular rate and rhythm with a normal S1 and S2. No gallops, murmurs, or rubs. Normal PMI, no JVD. No pulse deficits. Abdomen/GI: Soft, non-tender, with normal bowel sounds. No distension or tympany. No guarding or rebound. No evidence of tenderness throughout. Back: No spinal tenderness. No costovertebral tenderness. Full range of motion. Skin: Warm, dry with normal turgor. Normal color with no rashes, no lesions, and no evidence of cellulitis. Neuro: Awake and alert, GCS 15, oriented to person, place, time, and situation. Cranial nerves II-XII grossly intact. Motor strength 5/5 in all extremities. Sensory grossly intact. Cerebellar exam normal. Normal gait. Psych: Awake, alert, with orientation to person, place and time. Behavior, mood, and affect are within normal limits. 05:59 Respiratory: Rales bilaterally at the bases noted. 2+ pitting edema peripherally also noted., 06:01 ECG was reviewed by the Attending Physician. EKG demonstrates normal sinus rhythm at 91 sp3 bpm with normal intervals, normal QRS, normal axis, nonspecific diffuse ST's ST changes without evidence of acute ischemia. Vital Signs: 05:31 BP 123 / 77; Pulse 82; Resp 20; Temp 97.3; Pulse Ox 93% on R/A; Weight 136.08 kg; pf1 Height 5 ft. 11 in. ; Pain 0/10; 06:20 BP 115 / 74; Pulse 89; Resp 17 S; Pulse Ox 96% on R/A; jw7 05:31 Body Mass Index 41.84 (136.08 kg, 180.34 cm) pf1 05:31 Pain Scale: Adult pf1 MDM: 05:36 Patient medically screened. sp3 05:59 Data reviewed: vital signs, nurses notes, lab test result(s), EKG, radiologic studies. sp3 ED course: 63-year-old male with shortness of breath and complex medical history. Differential diagnosis includes new onset CHF, ACS spectrum, pneumonia, bronchitis, COVID-19, influenza, among others. Workup will include chest x-ray, EKG, laboratory values, swabs and general supportive care. Disposition pending workup and patient course.. 06:58 ED course: X-ray demonstrates left lower lobe haziness consistent with possible sp3 pneumonia. BNP, lactate, CBC/WBC count all within normal limits. Troponin also negative. We will give Rocephin 1 g IV and discharged on Zithromax with follow-up to PCP.. 09/02 05:40 Order name: Basic Metabolic Panel; Complete Time: 06:40 3 09/02 05:40 Order name: CBC with Diff; Complete Time: 06:40 09/02 05:40 Order name: LFT's; Complete Time: 06:40 09/02 05:40 Order name: Magnesium; Complete Time: 06:40 09/02 05:40 Order name: NT PRO-BNP; Complete Time: 06:40 09/02 05:40 Order name: PT-INR; Complete Time: 06:40 09/02 05:40 Order name: Troponin HS; Complete Time: 06:40 09/02 06:01 Order name: Flu sp3 09/02 05:40 Order name: XRAY Chest (1 view) 3 09/02 05:40 Order name: Cardiac monitoring; Complete Time: 06:04 3 09/02 05:40 Order name: EKG - Nurse/Tech; Complete Time: 06:04 sp3 09/02 05:40 Order name: IV Saline Lock; Complete Time: 06:04 sp3 09/02 05:40 Order name: Labs collected and sent; Complete Time: 06:05 sp3 09/02 05:40 Order name: O2 Per Protocol; Complete Time: 05:42 sp3 09/02 05:40 Order name: O2 Sat Monitoring; Complete Time: 05:42 sp3 Administered Medications: 06:50 Drug: Rocephin - Rocephin (cefTRIAXone) IVPB 1 grams IVPB once over 30 mins; (mix in 50 jw7 mL NS) Route: IVPB; Infused Over: 30 mins; Site: left antecubital; 07:03 Follow up: Response: No adverse reaction; Medication administered at discharge.; IV jw7 Status: Completed infusion; IV Intake: 50ml Disposition Summary: 09/03/23 07:00 Discharge Ordered Notes: Location: Home sp3 Condition: Stable sp3 Diagnosis - Pneumonia, dyspnea sp3 Followup: sp3 - With: Private Physician - When: Upon discharge from the Emergency Department - Reason: Continuance of care Discharge Instructions: - Discharge Summary Sheet sp3 - Community-Acquired Pneumonia, Adult sp3 Forms: - Medication Reconciliation Form sp3 - Antibiotic Education sp3 - Prescription Opioid Use sp3 - Patient Portal Instructions sp3 - Leadership Thank You Letter sp3 - Work release form jw7 Prescriptions: - Tessalon Perles 100 mg Oral Capsule - take 1 capsule ORAL route every 8 hours As needed; 15 capsule; Refills: 0, sp3 Product Selection Permitted - Zithromax Z-Declan 250 mg Oral Tablet - take 1 tablet ORAL route as directed for 5 days Day 1 - take two (2) tablets sp3 one time. Day 2, 3, 4 , 5 take one (1) tablet once daily.; 6 tablet; Refills: 0, Product Selection Permitted Signatures: Dispatcher [employer] EDMS Ladi Garnica MD MD sp3 Carrol Mcclendon RN RN jw7 Li Glass RN RN pf1 Corrections: (The following items were deleted from the chart) 05:41 05:41 BASIC METABOLIC PANEL+C.LAB.BRZ ordered. EDMS EDMS 05:41 05:41 CBC+H.LAB.BRZ ordered. EDMS EDMS 05:41 05:41 HEPATIC FUNCTION+C.LAB.BRZ ordered. EDMS EDMS 05:41 05:41 MAGNESIUM+C.LAB.BRZ ordered. EDMS EDMS 05:41 05:41 PROBNP+C.LAB.BRZ ordered. EDMS EDMS 05:41 05:41 PROTIME (+INR)+COAG.LAB.BRZ ordered. EDMS EDMS 05:41 05:41 Troponin High Sensitivity+C.LAB.BRZ ordered. EDMS EDMS 05:41 05:41 Chest Single View+RAD.RAD.BRZ ordered. EDMS EDMS
--- NOTE | 2023-09-03 07:00 | ER ---
Nurse's Notes [facility] Name: Dariel Duarte Age: 63 yrs Sex: Male : 1960 Arrival Date: 09/03/2023 Time: 05:26 Bed 13 Private MD: Diagnosis: Pneumonia, dyspnea Presentation: 09/02 05:31 Chief complaint: Patient states: SOB,worse in the past month with lightheadedness. pf1 Patient denies any pain. 05:31 Coronavirus screen: Vaccine status: Patient reports being unvaccinated. Client denies pf1 travel out of the [place] in the last 14 days. Client presents with at least one sign or symptom that may indicate coronavirus-19. Ebola Screen: Patient negative for fever greater than or equal to 101.5 degrees Fahrenheit, and additional compatible Ebola Virus Disease symptoms. Initial Sepsis Screen: Does the patient meet any 2 criteria? No. Patient's initial sepsis screen is negative. Does the patient have a suspected source of infection? No. Patient's initial sepsis screen is negative. Risk Assessment: Do you want to hurt yourself or someone else? Patient reports no desire to harm self or others. Onset of symptoms was August 04, 2023. 05:31 Method Of Arrival: Ambulatory pf1 05:31 Acuity: FARZANA 3 pf1 Triage Assessment: 05:31 General: Appears in no apparent distress. comfortable, well groomed, well developed, pf1 Behavior is calm, cooperative, appropriate for age, quiet. Pain: Denies pain. Neuro: Reports lightheadedness. Respiratory: Reports shortness of breath at rest on exertion since worse in the past month Airway is patent Respiratory effort is even, unlabored, Respiratory pattern is regular, symmetrical. 06:30 Respiratory: Onset: The symptoms/episode began/occurred over the last month, the jw7 patient has moderate shortness of breath. Historical: - Allergies: 05:43 Codeine; pf1 - PMHx: 05:43 Dry Eye; enlarged prostate; GERD; High Cholesterol; Hypertension; Diabetes mellitus; pf1 05:44 HS; pf1 - PSHx: 05:43 prostate; right arm; pf1 - Immunization history:: Adult Immunizations not up to date, Client reports having NOT received the Covid vaccine. Last tetanus immunization: < 10 years ago Flu vaccine is not up to date. - Infectious Disease History:: Denies. - Social history:: Smoking status: Patient/guardian denies using tobacco, the patient reports quitting approximately 14 years ago, Patient/guardian denies using alcohol, street drugs. Screenin:40 [facility] ED Fall Risk Assessment (Adult) History of falling in the last 3 months, jw7 including since admission No falls in past 3 months (0 pts) Confusion or Disorientation No (0 pts) Intoxicated or Sedated No (0 pts) Impaired Gait Yes (1 pt) Mobility Assist Device Used No (0 pt) Altered Elimination No (0 pt) Score/Fall Risk Level 0 - 2 = Low Risk Oriented to surroundings, Maintained a safe environment, Educated pt \T\ family on fall prevention, incl call for assistance when getting out of bed. Abuse screen: Denies threats or abuse. Denies injuries from another. Nutritional screening: No deficits noted. Tuberculosis screening: No symptoms or risk factors identified. Assessment: 05:40 General: Appears in no apparent distress. comfortable, Behavior is calm, cooperative, jw7 appropriate for age. Pain: Denies pain. Neuro: Level of Consciousness is awake, alert, obeys commands, Oriented to person, place, time, situation, Appropriate for age. Cardiovascular: Capillary refill < 3 seconds Clubbing of nail beds is absent JVD is absent Patient's skin is warm and dry. Cardiovascular: Rhythm is irregular. Respiratory: Airway is patent Trachea midline Respiratory effort is even, unlabored, Respiratory pattern is regular, symmetrical, Breath sounds are clear bilaterally. GI: Abdomen is round non-distended, obese, Bowel sounds present X 4 quads. Abd is soft and non tender X 4 quads. : No deficits noted. No signs and/or symptoms were reported regarding the genitourinary system. EENT: No deficits noted. No signs and/or symptoms were reported regarding the EENT system. Derm: Skin is intact, is healthy with good turgor, Skin is dry, Skin is normal, Skin temperature is warm. Musculoskeletal: Circulation, motion, and sensation intact. Range of motion: intact in all extremities. 06:30 Reassessment: Patient appears in no apparent distress at this time. No changes from jw7 previously documented assessment. Patient and/or family updated on plan of care and expected duration. Pain level reassessed. Patient is alert, oriented x 3, equal unlabored respirations, skin warm/dry/pink. 07:04 Reassessment: Patient appears in no apparent distress at this time. No changes from jw7 previously documented assessment. Patient and/or family updated on plan of care and expected duration. Pain level reassessed. Patient is alert, oriented x 3, equal unlabored respirations, skin warm/dry/pink. Vital Signs: 05:31 BP 123 / 77; Pulse 82; Resp 20; Temp 97.3; Pulse Ox 93% on R/A; Weight 136.08 kg; pf1 Height 5 ft. 11 in. ; Pain 0/10; 06:20 BP 115 / 74; Pulse 89; Resp 17 S; Pulse Ox 96% on R/A; jw7 05:31 Body Mass Index 41.84 (136.08 kg, 180.34 cm) pf1 05:31 Pain Scale: Adult pf1 ED Course: 05:29 Patient arrived in ED. jj6 05:34 Ladi Garnica MD is Attending Physician. sp3 05:36 Triage completed. pf1 05:40 Arm band placed on. jw7 05:40 Patient has correct armband on for positive identification. Bed in low position. Call jw7 light in reach. Side rails up X 1. Provided Education on: use of call light. 05:41 Carrol Mcclendon, RN is Primary Nurse. jw7 05:42 No provider procedures requiring assistance completed. pf1 06:04 Basic Metabolic Panel Sent. vk 06:04 CBC with Diff Sent. vk 06:04 LFT's Sent. vk 06:04 Magnesium Sent. vk 06:04 NT PRO-BNP Sent. vk 06:04 PT-INR Sent. vk 06:04 Troponin HS Sent. vk 06:05 Inserted saline lock: 22 gauge in left antecubital area, using aseptic technique. vk 06:05 EKG done, by ED staff. vk 06:17 XRAY Chest (1 view) In Process Unspecified. EDMS 07:19 IV discontinued, intact, bleeding controlled, No redness/swelling at site. Pressure kc6 dressing applied. Administered Medications: 06:50 Drug: Rocephin - Rocephin (cefTRIAXone) IVPB 1 grams IVPB once over 30 mins; (mix in 50 jw7 mL NS) Route: IVPB; Infused Over: 30 mins; Site: left antecubital; 07:03 Follow up: Response: No adverse reaction; Medication administered at discharge.; IV jw7 Status: Completed infusion; IV Intake: 50ml Medication: 06:31 VIS not applicable for this client. jw7 Intake: 07:03 IV: 50ml; Total: 50ml. jw7 Outcome: 07:00 Discharge ordered by . sp3 07:18 Discharged to home ambulatory, kc6 07:18 Condition: good 07:18 Discharge instructions given to patient, Instructed on discharge instructions, follow up and referral plans. medication usage, Demonstrated understanding of instructions, follow-up care, medications, Prescriptions given X 2, 07:19 Patient left the ED. kc6 Signatures: Dispatcher [employer] EDMS Ladi Garnica MD MD sp3 Brenda Walker Jodi, RN RN jw7 Anastacia Deleon RN RN kc6 Li Glass RN RN pf1 Huong Garcia Corrections: (The following items were deleted from the chart) 05:43 05:42 Triage completed. pf1 pf1
[2023-09-03 07:26] VITALS: BP 115/74; TEMP 97.3; O2SAT 96
--- NOTE | 2023-09-03 10:16 | RAD REPORT ---
EXAM DESCRIPTION: RAD - Chest Single View - 09/03/2023 6:15 am CLINICAL HISTORY: DYSPNEA COMPARISON: 03/03/2022. TECHNIQUE: XR CHEST 1 VIEW 09/03/2023 5:40 AM CDT FINDINGS: The heart is enlarged. Lungs are clear without consolidation, atelectasis, mass or edema. There is no pleural effusion. There is no pneumothorax. There are no acute osseous findings. IMPRESSION: Clear lungs. Electronically signed by: Adolph Johnson MD 09/03/2023 06:50 AM CDT RP Due to temporary technical issues with the PACS/Fluency reporting system, reports are being signed by the in house radiologists without review as a courtesy to insure prompt reporting. The interpreting radiologist is fully responsible for the content of the report.
--- NOTE | 2023-09-03 15:40 | EKG ---
Test Date: 2023-09-03 Test Time: 05:52:15 Processes Chemical Design Engineer: DANILO MEASUREMENT RESULTS: Intervals: Rate: 91 NH: 148 QRSD: 76 QT: 342 QTc: 420 [place]: P: 53 NH: 148 QRS: 78 T: 64 INTERPRETIVE STATEMENTS: Normal sinus rhythm with sinus arrhythmia Nonspecific ST abnormality Abnormal ECG Compared to ECG 12/17/2020 05:56:03 ST (T wave) deviation now present Electronically Signed On 09-03-23 15:40:09 CDT by Gerson Hernández
== END 2023-09-03 07:19 | disposition home or self-care (01) ==
LOC: ER 05:26
DX: J18.9 Pneumonia, unspecified organism (principal); Z88.5 Allergy status to narcotic agent; Z28.310 Unvaccinated for COVID-19
CPT/HCPCS: 93005; 85025; 80048; 36415; 83735; 85610; 80076; 84484; 83880; 71045; 96374; 99284; J0696

== ENCOUNTER 2023-11-19 03:13 | Emergency (ER) | payer BC, SELFPAY ==
--- OUTSIDE RECORDS SUMMARY | 2023-11-19 03:16 | XMS REPORT | Continuity of Care Document ---
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 2021-03-26 00:00:00 2021-03-26 00:00:00 Outpatient SHERLYN BLEVINS CANDY [id number] [facility] 2021-03-05 11:30:00 2021-03-05 12:00:00 Office Visit Deisi Ford Gem [id number] [facility] 2021-03-05 00:00:00 2021-03-05 00:00:00 Outpatient DEISI FORD CANDY HINES [id number] [facility] 2019-08-02 12:12:50 2019-08-02 13:32:00 Emergency Kathy Arana [facility] [id number] [facility] 2019-08-02 12:12:50 2019-08-02 13:32:00 Emergency Kathy Arana [facility] [id number] 2019-08-02 12:12:50 2019-08-02 12:12:50 Emergency X KATHY ARANA [facility] [id number] [facility] Results Test Description Test Time Test Comments Results Result Co mments Source [facility]
[2023-11-19 04:17] LABS: SARS-CoV-2 Antigen CONTROL BLUE LINE VIS/BG OK; SARS-CoV-2 Antigen Rapid Res Negative (Negative)
--- NOTE | 2023-11-19 04:44 | EDPHYS ---
Physician Documentation [facility] Name: Dariel Duarte Age: 63 yrs Sex: Male : 1960 Arrival Date: 11/19/2023 Time: 03:13 Bed 19 Private MD: ED Physician Gopi Rodriguez HPI: 11/18 03:34 This 63 yrs old Male presents to ER via Ambulatory with complaints of Cold ec2 Symptoms. 03:34 Patient arrives today for evaluation of cough and cold symptoms. Patient reports he ec2 been having several days of symptoms. Patient reports also chronic cough as well as shortness of breath. Patient reports no vomiting, no diarrhea. Denies any cardiac disease, denies any pulmonary disease.. Historical: - Allergies: 03:28 Codeine; jb4 - PMHx: 03:28 Dry Eye; enlarged prostate; depressive disorder; diabetes mellitus; Hypertension; High jb4 Cholesterol; GERD; - PSHx: 03:28 prostate; right arm; jb4 - Immunization history:: Adult Immunizations up to date. - Infectious Disease History:: Denies. - Social history:: Smoking status: Patient denies any tobacco usage or history of. ROS: 03:34 Constitutional: as per hpi ec2 Exam: 03:34 Constitutional: GEN: NAD Head: atraumatic Eyes: EOMI Ears: External ears are ec2 normal. CV: regular rate LUNGS: no respiratory distress, no wheezes, no rales, no rhonchi ABD: non-distended SKIN: no evidence of rashes MSK: no evidence of trauma NEURO: moves all extremities equally Vital Signs: 03:27 BP 148 / 92; Pulse 60; Resp 16; Temp 98.7(O); Pulse Ox 97% on R/A; Weight 138.35 kg; jb4 Height 5 ft. 4 in. (R); Pain 0/10; 04:53 BP 125 / 86; Pulse 58; Resp 16; Temp 98.7; Pulse Ox 98% ; cp4 03:27 Body Mass Index 52.35 (138.35 kg, 162.56 cm) jb4 03:27 Pain Scale: Adult jb4 MDM: 03:19 Patient medically screened. ec2 03:34 Data reviewed: vital signs. ED course: Patient arrives today for URI signs symptoms. ec2 Examination remarkable for well-appearing nontoxic dividual's otherwise in no acute distress with a reassuring examination. Will obtain chest x-ray, viral swab. Differential includes pneumonia, viral infection. Additionally considered other processes such as sinusitis. 04:44 ED course: Patient remains well-appearing in no acute distress. Will discharge home. ec2 Return precautions given peer. 11/18 03:32 Order name: Influenza Screen (a \T\ B); Complete Time: 04:53 ec2 11/18 03:32 Order name: SARS RAPID; Complete Time: 04:20 ec2 11/18 03:32 Order name: CXR XRAY ec2 Administered Medications: 04:53 Drug: Tessalon Perle PO 100 mg PO once Route: PO; cp4 04:53 Follow up: Response: No adverse reaction cp4 04:53 Drug: predniSONE PO 20 mg PO once Route: PO; cp4 04:53 Follow up: Response: No adverse reaction cp4 Disposition Summary: 11/19/23 04:43 Discharge Ordered Notes: Location: Home ec2 Condition: Stable ec2 Diagnosis - Viral infection, unspecified ec2 Followup: ec2 - With: Private Physician - When: - Reason: Re-evaluation by your physician Discharge Instructions: - Discharge Summary Sheet ec2 - Viral Illness, Adult ec2 Forms: - Work release form ec2 - Medication Reconciliation Form ec2 - Antibiotic Education ec2 - Prescription Opioid Use ec2 - Patient Portal Instructions ec2 - Leadership Thank You Letter ec2 Prescriptions: - Tessalon Perles 100 mg Oral Capsule - take 1 capsule ORAL route every 8 hours As needed; 15 capsule; Refills: 0, ec2 Product Selection Permitted - Prednisone 20 mg Oral Tablet - take 2 tablets ORAL route once daily for 5 days; 10 tablet; Refills: 0, Product ec2 Selection Permitted Signatures: Dispatcher [employer] Morris Bustamante RN RN jb4 Gopi Rodriguez MD MD ec2 Paola Das cp4 Corrections: (The following items were deleted from the chart) 04:43 04:42 ED course: Metabolic profile reassuring. Slight hypokalemia noted. Will discharge ec2 home. Turn precautions given. ec2
--- NOTE | 2023-11-19 04:44 | ER ---
Nurse's Notes [facility] Name: Dariel Duarte Age: 63 yrs Sex: Male : 1960 Arrival Date: 11/19/2023 Time: 03:13 Bed 19 Private MD: Diagnosis: Viral infection, unspecified Presentation: 11/18 03:27 Chief complaint: Patient states: I feel like my sinuses are stopped up and I am jb4 congested. Coronavirus screen: At this time, the client does not indicate any symptoms associated with coronavirus-19. Ebola Screen: No symptoms or risks identified at this time. Initial Sepsis Screen: Does the patient meet any 2 criteria? No. Patient's initial sepsis screen is negative. Does the patient have a suspected source of infection? No. Patient's initial sepsis screen is negative. Risk Assessment: Do you want to hurt yourself or someone else? Patient reports no desire to harm self or others. Onset of symptoms was November 19, 2023. Transition of care: patient was not received from another setting of care. 03:27 Method Of Arrival: Ambulatory jb4 03:27 Acuity: FARZANA 5 jb4 Historical: - Allergies: 03:28 Codeine; jb4 - PMHx: 03:28 Dry Eye; enlarged prostate; depressive disorder; diabetes mellitus; Hypertension; High jb4 Cholesterol; GERD; - PSHx: 03:28 prostate; right arm; jb4 - Immunization history:: Adult Immunizations up to date. - Infectious Disease History:: Denies. - Social history:: Smoking status: Patient denies any tobacco usage or history of. Screenin:43 [facility] ED Fall Risk Assessment (Adult) History of falling in the last 3 months, cp4 including since admission No falls in past 3 months (0 pts) Confusion or Disorientation No (0 pts) Intoxicated or Sedated No (0 pts) Impaired Gait No (0 pts) Mobility Assist Device Used No (0 pt) Altered Elimination No (0 pt) Score/Fall Risk Level 0 - 2 = Low Risk Oriented to surroundings, Maintained a safe environment, Assessed \T\ reinforced patient's understanding of fall precautions, Hourly rounding (assess needs \T\ fall precautionary measures) done. Abuse screen: Denies threats or abuse. Nutritional screening: No deficits noted. Tuberculosis screening: No symptoms or risk factors identified. Assessment: 03:43 General: Appears in no apparent distress. comfortable, Behavior is calm, cooperative, cp4 appropriate for age. Pain: Denies pain. Neuro: Level of Consciousness is awake, alert, obeys commands, Oriented to person, place, time, situation. Cardiovascular: No deficits noted. Respiratory: No deficits noted. GI: No deficits noted. : No deficits noted. EENT: Reports nasal congestion since yesterday. Derm: No deficits noted. Musculoskeletal: No deficits noted. Vital Signs: 03:27 BP 148 / 92; Pulse 60; Resp 16; Temp 98.7(O); Pulse Ox 97% on R/A; Weight 138.35 kg; jb4 Height 5 ft. 4 in. (R); Pain 0/10; 04:53 BP 125 / 86; Pulse 58; Resp 16; Temp 98.7; Pulse Ox 98% ; cp4 03:27 Body Mass Index 52.35 (138.35 kg, 162.56 cm) jb4 03:27 Pain Scale: Adult jb4 ED Course: 03:15 Patient arrived in ED. ec2 03:16 Gopi Rodriguez MD is Attending Physician. ec2 03:26 Paola Das is Primary Nurse. cp4 03:28 Triage completed. jb4 03:28 Arm band placed on right wrist. jb4 03:43 Bed in low position. Call light in reach. Side rails up X 1. cp4 03:43 No provider procedures requiring assistance completed. Patient did not have IV access cp4 during this emergency room visit. 03:58 CXR XRAY In Process Unspecified. EDMS 04:54 Provided Education on: viral illness. cp4 Administered Medications: 04:53 Drug: Tessalon Perle PO 100 mg PO once Route: PO; cp4 04:53 Follow up: Response: No adverse reaction cp4 04:53 Drug: predniSONE PO 20 mg PO once Route: PO; cp4 04:53 Follow up: Response: No adverse reaction cp4 Medication: 03:43 VIS not applicable for this client. cp4 Outcome: 04:43 Discharge ordered by . ec2 04:54 Discharged to home ambulatory, cp4 04:54 Condition: stable 04:54 Discharge instructions given to patient, family, Instructed on discharge instructions, follow up and referral plans. medication usage, Demonstrated understanding of instructions, follow-up care, medications, Prescriptions given X 2, 04:54 Patient left the ED. cp4 Signatures: Dispatcher [employer] Morris Bustamante RN RN jb4 Gopi Rodriguez MD MD ec2 Paola Das cp4
[2023-11-19] MEDS ORDERED: BENZONATATE 100 MG CAP PO ONE (04:49)
[2023-11-19] MEDS ORDERED: predniSONE 20 MG TAB ONE (04:49)
[2023-11-19 04:59] VITALS: TEMP 98.7
[2023-11-19 05:01] VITALS: BP 125/86; O2SAT 98
--- NOTE | 2023-11-20 19:37 | RAD REPORT ---
EXAM DESCRIPTION: RAD - Chest Single View - 11/19/2023 3:56 am CLINICAL HISTORY: The patient is 63 years old and is Male; COUGH TECHNIQUE: Frontal view of the chest. COMPARISON: No relevant prior studies available. FINDINGS: Lungs: Prominent interstitial markings suggestive of interstitial edema. Pleural space: Unremarkable. No pneumothorax. Heart: Unremarkable. Mediastinum: Unremarkable. Normal mediastinal contour. Bones/joints: No acute findings. IMPRESSION: Prominent interstitial markings suggestive of interstitial edema. Electronically signed by: Varghese Zuniga MD 11/19/2023 05:09 AM CDT 8 Due to temporary technical issues with the PACS/Fluency reporting system, reports are being signed by the in house radiologists without review as a courtesy to insure prompt reporting. The interpreting radiologist is fully responsible for the content of the report.
== END 2023-11-19 04:54 | disposition home or self-care (01) ==
LOC: ER 03:13
DX: B34.9 Viral infection, unspecified (principal); Z11.52 Encounter for screening for COVID-19
CPT/HCPCS: 36415; 71045; 87804; 87811; 99283; J7512